=== PATIENT | female | born 1995 | race Caucasian/White ===

== ENCOUNTER 2020-12-17 11:48 | Outpatient (REF) | payer OTHER, MEDICAID, SELFPAY | END 2020-12-17 11:49 | disposition home or self-care (01) | LOC: HO.HMGCLDS 11:48 | PROVIDERS: PCP Nurse Practitioner Family; Visit Provider Nurse Practitioner Family | DX: Z13.89 Encounter for screening for other disorder (principal) ==

== ENCOUNTER 2020-12-18 08:02 | Outpatient (REF) | payer OTHER, SELFPAY ==
[2020-12-18 14:06] LABS: Alanine Aminotransferase 19 U/L (0-31); Albumin Level 3.9 g/dL (3.5-5.0); Alkaline Phosphatase 64 U/L (39-117); Anion Gap 14 (12-20); Aspartate Amino Transferase 18 U/L (5-31); Bilirubin Total 0.3 mg/dL (0.0-1.0); Blood Urea Nitrogen 9 mg/dL (9-16); Calcium 8.6 mg/dL (8.4-10.2); Carbon Dioxide 25 mmol/L (22-29); Chloride 106 mmol/L (96-108); Cholesterol 173 mg/dL; Estimated Glomerular Filt Rate > 60; Glucose Fasting 89 mg/dL (60-99); HDL Cholesterol 41 mg/dL; LDL Cholesterol Calculated 107 mg/dl; Potassium 4.4 mmol/L (3.3-5.1); Sodium 141 mmol/L (135-145); Total Protein 6.3 g/dL (6.5-8.0); Triglycerides 126 mg/dL
[2020-12-18 14:26] LABS: TSH reflex Free T4 1.03 uIU/mL (0.32-4.0); Vitamin D 25-OH Total 44.6 ng/mL (>30)
== END 2020-12-18 08:03 | disposition home or self-care (01) ==
LOC: HO.HMGCLDS 08:02
PROVIDERS: PCP Nurse Practitioner Family; Visit Provider Nurse Practitioner Family
DX: E55.9 Vitamin D deficiency, unspecified (principal); Z00.00 Encounter for general adult medical examination without abnormal findings
CPT/HCPCS: 36415; 80053; 80061; 82306; 84443

== ENCOUNTER 2023-09-01 13:22 | Outpatient (AMB) | payer OTHER, SELFPAY ==
--- NOTE | 2023-09-01 13:28 | A.OFFPC_ITS ---
Vital Signs 09/01/23 13:31 09/01/23 15:52 Height 5 ft 7 in Weight 226 lb BMI 35.4 BP 130/90 H 128/75 Blood Pressure Location Lt brachial Position Sitting Pulse 98 Pulse Source Pulse Oximeter Pulse Oximetry (%) 98 Oxygen Delivery Method Room Air Intake Visit Reasons: Annual Exam+ NEEDS PHQ9 Intake Note: Patient here for physical exam and would like to talk about the level of anxiety. And would also like to talk about Acid reflux issues. Allergies No Known Allergies Allergy (Verified 09/01/23 13:33) Medication List - Last Reconciled 09/01/23 by HERMINIO Hardy-RUBIA cholecalciferol (vitamin D3) (Vitamin D3) 50 mcg PO DAILY clonidine HCl 0.2 mg (2 x 0.1 mg) PO DAILY L norgest/e.estradiol-e.estrad 0.15 mg-30 mcg (84)/10 mcg (7) 1 tab PO DAILY Tobacco use date assessed: 09/01/23 Dental Screening Dental Screen Date: 09/01/23 Did you have a dental visit in the last 12 months?: Yes Did you have a dental problem in the last 6 months where you did not have access to dental care?: No Was dental information given to patient?: Patient has dentist HPI Annual Exam+ NEEDS PHQ9 HPI Details Pt is here for a PE. Will order labs. 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 Pt reports increased anxiety. She would like to try a medication for this. Will send escitalopram 5mg. Pt and her parents will keep me posted with how she is doing and any side effects. Denies any SI and HI. Pt does have an autistic disorder. She is accompanied by her mom today who helps with communication and questions. [facility] Medical History Autistic disorder Family History Father No problems noted. Mother No problems noted. Social History Housing: House Alcohol intake: never Patient Tobacco Use Status: Never used Tobacco e-Cigarette/Vaping Use: Never Used service: No Current occupational status: unemployed Cognitive needs: No Hearing needs: No Vision needs: Yes Questionnaire PHQ-9 Over the last 2 weeks, how often have you been bothered by any of the following problems? 1. Little interest or pleasure in doing things: not at all 2. Feeling down, depressed, or hopeless: not at all 3. Trouble falling or staying asleep, or sleeping too much: not at all 4. Feeling tired or having little energy: not at all 5. Poor appetite or overeating: not at all 6. Feeling bad about yourself - or that you are a failure or have let yourself or your family down: not at all 7. Trouble concentrating on things, such as reading the newspaper or watching television: not at all 8. Moving or speaking so slowly that other people could have noticed. Or the opposite - being so fidgety or restless that you have been moving around a lot more than usual: not at all 9. Thoughts that you would be better off or of hurting yourself in some way: not at all Total score: 0 Depression Screening Interpretation: Negative Depression Screening Done: Yes 23777 - PHQ-9 Billing: Yes Source: Developed by Drs. Casey Isaac, Hazel Gonzalez, Vance Mckeon and colleagues, with an educational fatmata from [employer]. Thrive Questionnaire Date Thrive assessed: 09/01/23 I am a: Patient What is your living situation today?: I have a steady place to live Within the past 12 months, did the food you bought not last and you didn't have the money to get more?: Never true Within the past 12 months, did you worry whether your food would run out before you got money to buy more?: Never true Do you have trouble paying for medicines?: No Do you have trouble getting transportation to medical appointments?: No Do you have trouble paying your heating and electricity bill?: No Do you have trouble taking care of your child, family member or friend?: No Do you have trouble with day-to-day activities such as bathing, preparing meals, shopping, managing finances, etc.?: No Are you currently unemployed and looking for a job?: No Are you interested in more education?: No AUDIT C Alcohol Use Questionnaire (AUDIT-C) 1. How often do you have a drink containing alcohol?: Never 3. How often do you have six or more drinks on one occasion?: Never Total Score: 0 Score Reviewed/Action Taken: No HECTOR-7 AMB Questionnaire HECTOR-7 Date HECTOR - 7 assessed: 09/01/23 Feeling nervous, anxious, or on edge: 2 = More than half the days Not being able to stop or control worryin = Several days Worrying too much about different things: 2 = More than half the days Trouble relaxin = Several days Being so restless that it is hard to sit still: 1 = Several days Becoming easily annoyed or irritable: 1 = Several days Feeling afraid as if something awful might happen: 1 = Several days Total HECTOR-7 score (0-4 normal; 5-9 mild; 10-14 moderate; 15-21 severe): 9 Source: Developed by Drs. Casey Isaac, Hazel Gonzalez, Vance Mckeon and colleagues, with an educational fatmata from [employer]. HECTOR-7 Assessment Billing HECTOR-7 Assessment Tool: HECTOR-7 Assessment 02281 Review of Systems Const Denies chills and Denies fever(s) Eyes Denies blurry vision ENT Denies vertigo, Denies dizziness and Denies sore throat Card Denies chest pain at rest, Denies chest pain with activity, Denies diaphoresis, Denies dyspnea and Denies dyspnea on exertion Resp Denies cough, Denies dyspnea, Denies dyspnea on exertion and Denies wheezing GI Denies abdominal pain, Denies melena, Denies hematochezia, Denies constipation, Denies diarrhea and Denies loose stools Denies hematuria Musc Denies numbness and Denies tingling Skin/Breast Denies lesions Neuro Denies vertigo, Denies dizziness, Denies numbness and Denies tingling Psych Denies anxiety, Denies depression, Denies homicidal ideation, Denies suicidal ideation and Denies other (substance abuse) Aller/Immun Denies wheezing Physical exam (Primary Care) Vital Signs: Last Vital Signs Pulse 98 09/01/23 13:31 BP 130/90 H 09/01/23 13:31 Pulse Ox 98 09/01/23 13:31 Oxygen Delivery Method Room Air 09/01/23 13:31 BMI result Body Mass Index 35.4 Tobacco/Smoking Status: Tobacco use Status Tobacco use date assessed 09/01/23 09/01/23 13:38 Patient Tobacco Use Status Never used Tobacco 09/01/23 13:38 e-Cigarette/Vaping Use Never Used 09/01/23 13:38 PHQ-9: PHQ-9 Score PHQ-9: Total score 0 09/01/23 14:28 Depression Screening Interpretation: Negative Thrive Assessment: Date of Thrive Assessment Date Thrive assessed 09/01/23 09/01/23 14:28 Const General: cooperative Nutritional Appearance: obese Orientation/consciousness: patient oriented x3 HENMT Head: Yes normal to inspection, Yes normocephalic and Yes atraumatic Ears: TM's normal bilaterally Eyes General: appearance normal, both eyes and all related structures Alignment and Position: alignment normal and position normal Neck Neck: Yes normal visual inspection and Yes no lymphadenopathy Thyroid: Thyroid normal Resp Effort & Inspection: normal respiratory effort Auscultation: clear to auscultation bilaterally Cardio Rate: regular rate Rhythm: regular rhythm Heart sounds: S1 normal heart sound present, S2 normal heart sound present and no murmurs GI Palpation (GI): Soft to palpation and nontender Auscultation: normal bowel sounds Skin Rashes: no rashes Neuro General: patient oriented x3, moves all extremities, no focal motor deficits and deep tendon reflexes 2+ bilaterally Romberg Test: Negative Psych Appearance: grossly normal Mental Status: mental status grossly normal Speech and movement: Normal speech and movement present Affect: normal affect Attitude: cooperative Thought process: Normal thought process present Thought content: Normal thought content present Insight: Good insight present (Psych) Judgement: Good judgement present (Psych) Assessment and Plan Assessment & Plan (1) Physical exam: Code(s): Z.00 - Encounter for general adult medical examination without abnormal findings Plan The patient agreed to the use of a medical economics consultant for this encounter. Scribed for DL Mendiola by Lizz Gutierrez medical economics consultant, on 09/01/2023 at 13:50 EST. Orders: Orders Comprehensive [place]. Panel Fast Today Z00.00 - Encounter for general adult medical examination without abnormal findings TSH reflex Free T4 Today Z00.00 - Encounter for general adult medical examination without abnormal findings Complete Blood Count Auto Diff Today Z00.00 - Encounter for general adult medical examination without abnormal findings UA CC w/rflx Micro + Cult Today Z00.00 - Encounter for general adult medical examination without abnormal findings Lipid Panel Today Z00.00 - Encounter for general adult medical examination without abnormal findings Medications: New omeprazole 20 mg PO DAILY 90 caps 0RF escitalopram oxalate 5 mg PO DAILY 90 tabs 0RF Coding Level of Care Code Est Pt Prev Care 18-39y(00129) Diagnoses Physical exam Z00.00 Additional Codes HECTOR-7 Assessment Billing - HECTOR-7 Assessment Tool: HECTOR-7 Assessment 81479 ([id number])
[2023-09-01 13:31] VITALS: BP 130/90; PULSE 98; O2SAT 98; BMI 35.4
[2023-09-01 15:52] VITALS: BP 128/75
== END 2023-09-01 14:10 | disposition home or self-care (01) ==
PROVIDERS: PCP Nurse Practitioner Family; Visit Provider Nurse Practitioner Family
DX: Z00.00 Encounter for general adult medical examination without abnormal findings (principal)
CPT/HCPCS: 99395

== ENCOUNTER 2024-09-14 10:18 | Outpatient (AMB) | payer OTHER, SELFPAY ==
--- NOTE | 2024-09-14 10:22 | MHC.PC.OV ---
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 Accompanied by: Self / Same As Patient Allergies No Known Allergies Allergy (Verified 09/14/24 11:18) Medication List - Last Reconciled 09/14/24 by DL Hardy cholecalciferol (vitamin D3) (Vitamin D3) 50 mcg PO DAILY clonidine HCl 0.2 mg (2 x 0.1 mg) PO DAILY escitalopram oxalate 10 mg PO DAILY L norgest/e.estradiol-e.estrad 0.15 mg-30 mcg (84)/10 mcg (7) 1 tab PO DAILY omeprazole 20 mg PO DAILY Tobacco use date assessed: 09/14/24 Dental Screening Dental Screen Date: 09/14/24 Did you have a dental visit in the last 12 months?: Yes Did you have a dental problem in the last 6 months where you did not have access to dental care?: No Was dental information given to patient?: Patient has dentist HPI HPI Comments History of Present Illness Details Pt is here for a PE. pt has seen a [facility] in the past, but refuses paps currently. Mother is the primary caregive (pt is autistic), is working with her daughter (pt) to get this performed at some point. [facility] Medical History Autistic disorder Surgical History No pertinent past surgical history Family History Father No problems noted. Mother No problems noted. Social History Housing: House Alcohol intake: never Patient Tobacco Use Status: Never used Tobacco e-Cigarette/Vaping Use: Never Used service: No Current occupational status: unemployed Cognitive needs: No Hearing needs: No Vision needs: Yes Questionnaire PHQ-9 Over the last 2 weeks, how often have you been bothered by any of the following problems? 1. Little interest or pleasure in doing things: not at all 2. Feeling down, depressed, or hopeless: not at all 3. Trouble falling or staying asleep, or sleeping too much: not at all 4. Feeling tired or having little energy: not at all 5. Poor appetite or overeating: not at all 6. Feeling bad about yourself - or that you are a failure or have let yourself or your family down: not at all 7. Trouble concentrating on things, such as reading the newspaper or watching television: not at all 8. Moving or speaking so slowly that other people could have noticed. Or the opposite - being so fidgety or restless that you have been moving around a lot more than usual: not at all 9. Thoughts that you would be better off or of hurting yourself in some way: not at all Total score: 0 Depression Screening Interpretation: Negative Depression Screening Done: Yes 04228 - PHQ-9 Billing: Yes Source: Developed by Drs. Casey Isaac, Hazel Gonzalez, Vance Mckeon and colleagues, with an educational fatmata from [employer]. Thrive Questionnaire Date Thrive assessed: 09/14/24 I am a: Patient What is your living situation today?: I have a steady place to live Within the past 12 months, did the food you bought not last and you didn't have the money to get more?: Never true Within the past 12 months, did you worry whether your food would run out before you got money to buy more?: Never true Do you have trouble paying for medicines?: No Do you have trouble getting transportation to medical appointments?: No Do you have trouble paying your heating and electricity bill?: No Do you have trouble taking care of your child, family member or friend?: No Do you have trouble with day-to-day activities such as bathing, preparing meals, shopping, managing finances, etc.?: No Are you currently unemployed and looking for a job?: Yes Are you interested in more education?: No Please select the resources that you would like help with: None Currently or been in a relationship where the following occur: I choose not to answer THRIVE Score: 0 AUDIT C Alcohol Use Questionnaire (AUDIT-C) 1. How often do you have a drink containing alcohol?: Never 2. How many drinks containing alcohol do you have on a typical day when you are drinking?: 1 or 2 3. How often do you have six or more drinks on one occasion?: Never Total Score: 0 Score Reviewed/Action Taken: Yes HECTOR-7 AMB Questionnaire HECTOR-7 Date HECTOR - 7 assessed: 09/14/24 Feeling nervous, anxious, or on edge: 0 = Not at all Not being able to stop or control worryin = Not at all Worrying too much about different things: 0 = Not at all Trouble relaxin = Not at all Being so restless that it is hard to sit still: 0 = Not at all Becoming easily annoyed or irritable: 0 = Not at all Feeling afraid as if something awful might happen: 0 = Not at all Total HECTOR-7 score (0-4 normal; 5-9 mild; 10-14 moderate; 15-21 severe): 0 Source: Developed by Drs. Casey Isaac, Hazel Gonzalez, Vance Mckeon and colleagues, with an educational fatmata from [employer]. HECTOR-7 Assessment Billing HECTOR-7 Assessment Tool: HECTOR-7 Assessment 24224 Review of Systems Const Denies chills and Denies fever(s) Eyes Denies blurry vision ENT Denies vertigo, Denies dizziness and Denies sore throat Card Denies chest pain at rest, Denies chest pain with activity, Denies diaphoresis, Denies dyspnea and Denies dyspnea on exertion Resp Denies cough, Denies dyspnea, Denies dyspnea on exertion and Denies wheezing GI Denies abdominal pain, Denies melena, Denies hematochezia, Denies constipation, Denies diarrhea and Denies loose stools Denies hematuria Musc Denies numbness and Denies tingling Skin/Breast Denies lesions Neuro Denies vertigo, Denies dizziness, Denies numbness and Denies tingling Psych Denies anxiety, Denies depression, Denies homicidal ideation, Denies suicidal ideation and Denies other (substance abuse) Aller/Immun Denies wheezing Physical exam (Primary Care) Vital Signs: Last Vital Signs Pulse 82 09/14/24 10:23 BP 122/80 09/14/24 10:23 Pulse Ox 98 01/08/25 10:23 BMI result Body Mass Index 35.5 Tobacco/Smoking Status: Tobacco use Status Tobacco use date assessed 09/14/24 09/14/24 10:24 Patient Tobacco Use Status Never used Tobacco 09/14/24 10:24 e-Cigarette/Vaping Use Never Used 09/14/24 10:24 PHQ-9: PHQ-9 Score PHQ-9: Total score 0 09/14/24 10:51 Depression Screening Interpretation: Negative Thrive Assessment: Date of Thrive Assessment Date Thrive assessed 09/14/24 09/14/24 10:24 Currently or been in a relationship where the following occur: I choose not to answer Const General: cooperative Nutritional Appearance: well nourished and obese Orientation/consciousness: patient oriented x3 HENMT Head: Yes normal to inspection, Yes normocephalic and Yes atraumatic Ears: TM normal on the right and TM normal on the left Eyes General: appearance normal, both eyes and all related structures Alignment and Position: alignment normal and position normal Neck Neck: Yes normal visual inspection, Yes no lymphadenopathy and Yes supple Resp Effort & Inspection: normal respiratory effort Auscultation: clear to auscultation bilaterally Cardio Rate: regular rate Rhythm: regular rhythm Heart sounds: S1 normal heart sound present, S2 normal heart sound present and no murmurs GI Palpation (GI): Soft to palpation and nontender Auscultation: normal bowel sounds Skin Rashes: no rashes Neuro General: patient oriented x3, moves all extremities, no focal motor deficits and deep tendon reflexes 2+ bilaterally Romberg Test: Negative Extrem Right lower extremity: no edema Left lower extremity: no edema Psych Affect: normal affect Attitude: cooperative Thought process: Normal thought process present Coding Level of Care Code Est Pt Prev Care 18-39y(33765) Diagnoses Physical exam Z00.00 Vitamin D deficiency E55.9 Additional Codes HECTOR-7 Assessment Billing - HECTOR-7 Assessment Tool: HECTOR-7 Assessment 44173 ([id number]) PHQ-9 - 03712 - PHQ-9 Billing: Yes ([id number]) Assessment & Plan Assessment & Plan (1) Physical exam: Code(s): Z00.00 - Encounter for general adult medical examination without abnormal findings Category: Medical (2) Vitamin D deficiency: Code(s): E55.9 - Vitamin D deficiency, unspecified Category: Medical Plan labs encouraged to have drawn in the near future Orders: Orders Complete Blood Count Auto Diff Today Z00.00 - Encounter for general adult medical examination without abnormal findings Vitamin D 25-OH Total Today E55.9 - Vitamin D deficiency, unspecified Comprehensive [place]. Panel Fast Today Z00.00 - Encounter for general adult medical examination without abnormal findings TSH reflex Free T4 Today Z00.00 - Encounter for general adult medical examination without abnormal findings UA CC w/rflx Micro + Cult Today Z00.00 - Encounter for general adult medical examination without abnormal findings Lipid Panel Today Z00.00 - Encounter for general adult medical examination without abnormal findings Medications: Refilled clonidine HCl 0.2 mg (2 x 0.1 mg) PO DAILY 180 tabs 1RF escitalopram oxalate 10 mg PO DAILY 90 tabs 0RF omeprazole 20 mg PO DAILY 90 caps 1RF cholecalciferol (vitamin D3) (Vitamin D3) 50 mcg PO DAILY 90 tabs 1RF E55.9 - Vitamin D deficiency, unspecified L norgest/e.estradiol-e.estrad 0.15 mg-30 mcg (84)/10 mcg (7) 1 tab PO DAILY 91 tabs 2RF
[2024-09-14 10:23] VITALS: BP 122/80; PULSE 82; O2SAT 98; BMI 35.5
== END 2024-09-14 11:41 | disposition home or self-care (01) ==
PROVIDERS: PCP Nurse Practitioner Family; Visit Provider Nurse Practitioner Family
DX: Z00.00 Encounter for general adult medical examination without abnormal findings (principal); E55.9 Vitamin D deficiency, unspecified

== ENCOUNTER → 2024-09-14 10:18 | Outpatient (BNVA) | payer OTHER, SELFPAY | PROVIDERS: PCP Nurse Practitioner Family; Visit Provider Nurse Practitioner Family | DX: Z00.00 Encounter for general adult medical examination without abnormal findings (principal); E55.9 Vitamin D deficiency, unspecified | CPT/HCPCS: 96127; 99395 ==

== ENCOUNTER 2025-03-16 10:13 | Outpatient (AMB) | payer OTHER, SELFPAY ==
[2025-03-16 10:15] VITALS: BP 124/84; PULSE 118; TEMP 37; O2SAT 98; BMI 34.5
--- NOTE | 2025-03-16 10:15 | AM.OFFWIN_ITS ---
Intake Vital Signs 03/16/25 10:15 Height 5 ft 7 in Weight 220 lb BMI 34.5 BP 124/84 Blood Pressure Location Lt brachial Position Sitting Pulse 118 H Pulse Source Pulse Oximeter Temp 98.6 F Temp Source Oral Pulse Oximetry (%) 98 Oxygen Delivery Method Room Air Intake Visit Reasons: EP shaky, nausea, headache, dizzy, weak Intake Note: presents with nausea, stomach pain, vomiting, headaches, dizziness, weakness, shaky, frequent urination for about a week Patient Tobacco Use Status: Never used Tobacco Allergies No Known Allergies Allergy (Verified 03/16/25 10:19) Do you need a note to return to daycare/school/sports/work: No HPI HPI Comments History of Present Illness Details Patient is a 29yo F with hx of autism who presents with her mom and uncle She started with symptoms last week Per mother, last week she was experiencing headaches and intermittent dizziness [place] like due to heat and not drinking as much Also noted at that time she had mosquito bites on legs and itched them Wanted to be checked today because still not feeling well Per patient she has not had any episodes of syncope or headache trauma 5/10 headache all over and is unable t o specify when it comes about or how it feels Has taken Ibuprofen with minimal relief No body aches but + fatigue + nausea, and did vomit clear phlegm/francis e; occurs once or twice a day since last week No diarrhea. States normal bowel movements + urinary frequency but denies dysuria o r other urinary symptoms Intermittent stomach upset but its not pain. She said sitting up makes it worse and laying down makes it better No cough or SOB No congestion ST or ear pain PFSH Medical History Autistic disorder Surgical History No pertinent past surgical history Family History Father No problems noted. Mother No problems noted. Social History Housing: House Alcohol intake: never Patient Tobacco Use Status: Never used Tobacco e-Cigarette/Vaping Use: Never Used service: No Current occupational status: unemployed Cognitive needs: No Hearing needs: No Vision needs: Yes Review of Systems Const Denies chills, Reports fatigue, Denies fever(s), Denies frequent falls, Reports headache(s), Denies increased appetite, Reports lethargy and Reports poor appetite Eyes Denies blurry vision ENT Reports dizziness, Reports headache(s), Denies nasal discharge and Denies sore throat Card Denies chest pain Resp Denies cough GI Reports abdominal pain (she denies pain but + ache/upset), Denies diarrhea, Denies loose stools, Reports nausea and Reports vomiting Denies hematuria, Denies difficulty voiding, Denies dysuria, Denies urinary incontinence, Denies urinary urgency and Reports other (urinary frequency) Musc Denies myalgias Skin/Breast Reports other (had bug bites to leg without significant redness/swelling) Neuro Denies confusion, Reports dizziness, Denies frequent falls and Reports headache(s) Psych Denies confusion Endo Reports fatigue Physical Exam Vital Signs: Last Vital Signs Temp 98.6 F 03/16/25 10:15 Pulse 118 H 03/16/25 10:15 BP 124/84 03/16/25 10:15 Pulse Ox 98 03/16/25 10:15 Oxygen Delivery Method Room Air 03/16/25 10:15 BMI result Body Mass Index 34.5 General: Non-toxic, NAD. Speaking full sentences but intermittently becomes upset when discussing abdominal pain Skin: Warm dry throughout Eye: EOMI, PERRL HENT: Airway patent. Uvula midline. No pharyngeal erythema or edema. No SERVICES ENGINEER. Bilateral canals clear. TM non-erythematous, non-bulging. No TM perforation or hemotympanum noted. Respiratory: CTA bilaterally. No wheezes, rales or rhonchi Cardiac: slightly tachycardic. No murmur MSK: Full ROM extremities. Neurology: Alert. No aphasia or facial droop. Gait without abnormality Psych: Slight anxious affect with normal mood Const General: No confusion Orientation/consciousness: No confusion Neuro General: No confusion Results AMB Test Urine AMB Test Urine Negative Last Edit by Tameka Pichardo MA on 03/16 11:06 Assessment & Plan Assessment & Plan (1) Urinary frequency: Code(s): R35.0 - Frequency of micturition Plan: Patient seen and evaluated. Will obtain urinalysis and HCG Pt attempted to get a clean catch with a hat in toilet but she did not wipe HCG negative Dirty urinalysis shows: + blood, protein,ketones, leuks and glucose Due to 3+ glucose with ketones, POC glucose checked in office and showed: HIGH, unable to read Will send to ER for workup Call placed to [facility] and expect given Discussed findings with patient and family; mother number is [phone] Patient and family gave verbal understanding and had no additional questions or concerns at time of discharge All questions answered (2) Abdominal discomfort: Code(s): R10.9 - Unspecified abdominal pain Plan: Pt seen and evaluated Non-toxic appearing and does not have an acute abdomen on exam without rebound or guarding She is slightly tachycardic on exam but is anxious see above for plan/management Family and pt gave verbal understanding and had no additional quesrtions at this time (3) Hyperglycemia: Code(s): R73.9 - Hyperglycemia, unspecified Plan: New onset hyperglycemia with reading high with ketones and glucose in office Refused ambulance but going immediarely to [facility] Sent to [facility] for new onset diabetes workup and further management Orders: Orders Urine Culture Today R35.0 - Frequency of micturition AMB Urinalysis Automated Today Z13.9 - Encounter for screening, unspecified AMB HCG Urine Test Today Z13.9 - Encounter for screening, unspecified Coding Level of Care Code Est Pt Level 5 (15983) Diagnoses Urinary frequency R35.0 Abdominal discomfort R10.9 Hyperglycemia R73.9
== END 2025-03-16 11:12 | disposition home or self-care (01) ==
PROVIDERS: PCP Nurse Practitioner Family; Visit Provider Physician Assistant
DX: R35.0 Frequency of micturition (principal); R10.9 Unspecified abdominal pain; R73.9 Hyperglycemia, unspecified; Z32.02 Encounter for pregnancy test, result negative

== ENCOUNTER → 2025-03-16 10:13 | Outpatient (BNVA) | payer OTHER, SELFPAY | PROVIDERS: PCP Nurse Practitioner Family; Visit Provider Physician Assistant | DX: R35.0 Frequency of micturition (principal); R10.9 Unspecified abdominal pain; R73.9 Hyperglycemia, unspecified | CPT/HCPCS: 81003; 81025; 99212 ==

== ENCOUNTER 2025-03-16 11:36 | Emergency (ER) | payer OTHER, SELFPAY ==
[2025-03-16 11:43] VITALS: BP 141/90; PULSE 105; RESP 16; TEMP 36.4; O2SAT 97; BMI 32.7
--- NOTE | 2025-03-16 11:47 | ED_ITS ---
HPI - General Adult General Chief complaint: Recheck/Abnormal Lab/Rx Stated complaint: high bs sent from urgent care Time Seen by Provider: 03/16/25 11:54 Source: patient and family Mode of arrival: ambulatory Limitations: no limitations History of Present Illness ED Provider: HPI narrative: 29-year-old woman sent to ER from PCP's office for reports of polyuria, polydipsia, and new onset of hyperglycemia and ketonuria, does have history of autism however she is very functional able to make her needs known, here with mom and dad, no reports of fevers or chills no reports of dyspnea, abdominal pain, she tested negative for at PCP's office. I reviewed her PCP visit Related Data Previous Rx's ?Medication ?Instructions ?Recorded L norgest/E estradiol-E estrad 1 tab PO DAILY #91 tabs 09/14/24 0.15 mg-30 mcg (84)/10 mcg(7) tabs,3mos cholecalciferol (vitamin D3) 50 50 mcg PO DAILY #90 ta bs 09/14/24 mcg (2,000 unit) tablet (Vitamin D3) clonidine HCl 0.1 mg tablet 0.2 mg (2 x 0.1 mg) PO TONE LY #180 09/14/24 tabs omeprazole 20 mg capsule,delayed 20 mg PO DAILY #90 ca ps 09/14/24 release escitalopram oxalate 10 mg tablet 10 mg PO DAILY #90 t abs 12/11/24 metformin 500 mg tablet 500 mg PO BID 30 days #60 ta bs 03/16/25 Allergies Allergy/AdvReac Type Severity Reaction Status Date / Time No Known Allergies Allergy Verified 03/16/25 11:43 Review of Systems 2 Constitutional: Constitutional: Reports as per [facility] Past Medical History Medical History Autistic disorder Surgical History No pertinent past surgical history Family History Family History Father No problems noted. Mother No problems noted. Social History Social History Housing: House Alcohol intake: never Patient Tobacco Use Status: Never used Tobacco e-Cigarette/Vaping Use: Never Used Use of substances other than those prescribed or required for medical reasons: No Advance Directives: No Advance Directives Information Provided: Yes service: No Current occupational status: unemployed Cognitive needs: No Hearing needs: No Vision needs: Yes Physical Exam ED Vital Signs: Vital Signs - 24 hr 03/16/25 11:43 03/16/25 13:21 Temperature 97.6 F 97.6 F Pulse Rate 105 H 105 H Respiratory Rate 16 16 Blood Pressure 141/90 H 141/90 H Pulse Oximetry 97 97 Oxygen Delivery Method Room Air Room Air BMI result Body Mass Index 32.7 Const Other: * Gen: ?Overall well-appearing patient * HEENT: Dry oral mucosa * Neck: Supple, no LAD * CV: RRR, no obvious murmurs appreciated * Resp: ?No wheezing rales rhonchi no stridor moving air well * Abd: ?Bowel sounds are present, no tenderness no rebound no rigidity * MSK: FROM, strength 5/5 all extremities * Skin: 2-3 mosquito like bite grossman to the left lower extremity over the anterior [place] no evidence for infection * Neuro: ?Alert and oriented x3, moving upper and lower extremities symmetrically, no obvious facial asymmetry noted Course Course Course Narrative: This is an RME: Additional HPI, ROS, PE not included below will be deferred to primary provider. RME assessment and note performed by: Connie Beltran PA-C This is a 89-vdbg-pcw-female, with a history of autism spectrum disorder, who presents to the ER accompanied by her parents, with complaints of nausea, vomiting, headache, polyuria, polydipsia. Symptoms started 1 week ago. Was seen at primary care this morning and point of care glucometer read as high. They are unsure what the POC high reading is. She denies any abdominal pain. States that she is feeling nauseous. No known history of diabetes however mother states that it runs in the family. Plan: Labs, UA, Further ER eval needed Medications Administered Discontinued Medications Generic Name Dose Route Start Last Admin Trade Name Freq PRN Reason Stop Dose Admin Sodium Chloride 1,000 mls @ 999 mls/hr 03/16/25 12:30 03/16/25 13:19 Ns IV 03/16/25 13:30 999 mls/hr .[id number] NATHANIEL Administration Insulin Human Lispro 12 unit 03/16/25 12:16 03/16/25 13:27 Insulin Lispro 100 Unit/Ml 3 Ml Vial SUBCUT 03/16/25 12:17 12 unit ONCE ONE Administration Medical Decision Making Medical Decision Making [facility] Narrative: See my differential as below, very pleasant 29-year-old woman here with the parents presenting from PCP's office with concern of new onset of diabetes and she was sent to the ER to make sure she is not ketotic state, reassuringly her blood work does not show any elevated gap, she does have hyperglycemia and ketonuria as well as glucosuria, her presentation is consistent with type 2 diabetes, also spoke to her it seems that her diet and glycemic can take is not well managed sounds like she drinks a lot of juices and sodas, we will give IV fluids, subcutaneous regular insulin, and I will start her on metformin, she will need to follow up with the PCP and they will need to continue Augmentin her medications and possibly refer her to enrichment specialist but I do not feel that this is indicated at this time where she just continue with oral medications and then she may need a longer acting injection this would be done by PCP then monitored frequently on outpatient setting and then if her glucose is not well controlled then I think it is reasonable to refer her to an enrichment specialist. Differential Diagnosis Differential Diagnoses: The differential diagnosis associated with the presentation includes DKA, hyperglycemia, HHS, electrolyte derangements, dehydration Admission/Observation Consideration of admission/observation: Escalation of care including admission/observation considered Lab Data [facility] Lab Attestation statement: I reviewed the patient's lab results. 03/16/25 12:13 03/16/25 12:13 Labs: Lab Results 03/16/25 03/16/25 03/16/25 Range/Units 11:53 12:13 12:20 WBC 9.3 (4.8-10.8) X10*3/uL RBC 4.72 (4.20-5.50) X10*6/uL Hgb 13.1 (12.0-16.0) g/dl Hct 38.7 (37.0-47.0) % MCV 82.0 (80.0-98.0) fL MCH 27.8 (27.0-33.0) pg MCHC 33.9 (31.0-35.0) g/dl RDW 13.2 (11.0-16.0) % Plt Count 311 (160-400) X10*3/uL MPV 12.3 (9.4-12.3) fL Immature Gran % (Auto) 0.3 (0.0-0.4) % Neut % (Auto) 78.2 H (45-73) % Lymph % (Auto) 17.3 L (20-40) % [place] % (Auto) 3.7 (2-11) % Eos % (Auto) 0.0 (0-4) % Baso % (Auto) 0.5 (0-2) % Lymph # (Auto) 1.6 (1.2-4.9) X10*3/uL [place] # (Auto) 0.4 (0.1-1.2) X10*3/uL Eos # (Auto) 0.0 (0.0-0.4) X10*3/uL Baso # (Auto) 0.1 (0.0-0.2) X10*3/uL Abs Immat Gran (auto) 0.03 (0.00-0.03) X10*3/uL Absolute Neuts (auto) 7.3 (2.0-8.3) x10*3/uL Absolute Nucleated RBC 0.000 (0.0-0.012) X10*3/uL Nucleated RBC % (auto) 0.0 (0.0-0.2) /100WBC VBG pH 7.35 (7.32-7.43) VBG pCO2 30 mmHg VBG pO2 78 mmHg VBG HCO3 17 L (22-26) mmol/L VBG O2 Saturation 95.0 % VBG Base Excess -6.8 mmol/L Sodium 135 (135-145) mmol/L Potassium 4.0 (3.3-5.1) mmol/L Chloride 99 (96-108) mmol/L Carbon Dioxide 18 L (22-29) mmol/L Anion Gap 22 H (12-20) BUN 7 L (9-16) mg/dL Creatinine 0.84 (0.5-1.4) mg/dL Estim Creat Clear Calc 117.7 Estimated GFR > 60 POC Glucose 558 H* (60-115) mg/dL Random Glucose 574 H* (60-115) mg/dL Calcium 9.0 (8.4-10.2) mg/dL Magnesium 2.1 (1.6-2.6) mg/dL Total Bilirubin 0.3 (0.0-1.0) mg/dL Direct Bilirubin 0.2 (0.0-0.5) mg/dL AST 62 H (5-31) U/L ALT 22 (0-31) U/L Alkaline Phosphatase 105 (39-117) U/L Total Protein 7.3 (6.5-8.0) g/dL Albumin 4.4 (3.5-5.0) g/dL Lipase 20 (8-78) U/L Beta-Hydroxybutyrate 4.83 H (0.02-0.27) mmol/L Beta HCG, Quant < 2 mIU/mL Influenza Type A (PCR) NEGATIVE (Negative) Influenza Type B (PCR) NEGATIVE (Negative) RSV RNA Qual (PCR) NEGATIVE (Negative) SARS-CoV-2 RNA (RT-PCR) NEGATIVE (Negative) 03/16/25 Range/Units 12:52 WBC (4.8-10.8) X10*3/uL RBC (4.20-5.50) X10*6/uL Hgb (12.0-16.0) g/dl Hct (37.0-47.0) % MCV (80.0-98.0) fL MCH (27.0-33.0) pg MCHC (31.0-35.0) g/dl RDW (11.0-16.0) % Plt Count (160-400) X10*3/uL MPV (9.4-12.3) fL Immature Gran % (Auto) (0.0-0.4) % Neut % (Auto) (45-73) % Lymph % (Auto) (20-40) % [place] % (Auto) (2-11) % Eos % (Auto) (0-4) % Baso % (Auto) (0-2) % Lymph # (Auto) (1.2-4.9) X10*3/uL [place] # (Auto) (0.1-1.2) X10*3/uL Eos # (Auto) (0.0-0.4) X10*3/uL Baso # (Auto) (0.0-0.2) X10*3/uL Abs Immat Gran (auto) (0.00-0.03) X10*3/uL Absolute Neuts (auto) (2.0-8.3) x10*3/uL Absolute Nucleated RBC (0.0-0.012) X10*3/uL Nucleated RBC % (auto) (0.0-0.2) /100WBC VBG pH (7.32-7.43) VBG pCO2 mmHg VBG pO2 mmHg VBG HCO3 (22-26) mmol/L VBG O2 Saturation % VBG Base Excess mmol/L Sodium (135-145) mmol/L Potassium (3.3-5.1) mmol/L Chloride (96-108) mmol/L Carbon Dioxide (22-29) mmol/L Anion Gap (12-20) BUN (9-16) mg/dL Creatinine (0.5-1.4) mg/dL Estim Creat Clear Calc Estimated GFR POC Glucose 443 H* (60-115) mg/dL Random Glucose (60-115) mg/dL Calcium (8.4-10.2) mg/dL Magnesium (1.6-2.6) mg/dL Total Bilirubin (0.0-1.0) mg/dL Direct Bilirubin (0.0-0.5) mg/dL AST (5-31) U/L ALT (0-31) U/L Alkaline Phosphatase (39-117) U/L Total Protein (6.5-8.0) g/dL Albumin (3.5-5.0) g/dL Lipase (8-78) U/L Beta-Hydroxybutyrate (0.02-0.27) mmol/L Beta HCG, Quant mIU/mL Influenza Type A (PCR) (Negative) Influenza Type B (PCR) (Negative) RSV RNA Qual (PCR) (Negative) SARS-CoV-2 RNA (RT-PCR) (Negative) External Record Review External record reviewed: Outpatient record Discharge Plan Discharge Clinical Impression: New onset type 2 diabetes mellitus Patient Disposition: Home, Self-Care Instructions: Diabetes and Nutrition (ED), Type 2 Diabetes Management for Adults (ED) Additional Instructions: You do have what appears to be a new onset of diabetes, likely type 2, I recommend dietary changes including hydrating with water and not sugary drinks as they have high glycemic index and we will raise your sugars, weight loss, starting on metformin 500 mg twice a day, follow up with the PCP, I would like the PCP to see you in a week or 2 for re-evaluation, and medication adjustments, would not worry about high glucose at this time right now concentrate on taking metformin daily as prescribed, making sure that your eating better, I recommend less carbohydrates such as pastas, breads, sugary drinks, candy, or any type of junk food, stick to protein such as meats, legumes, salad and greens, stay well hydrated. Your blood work did not reveal any evidence for diabetic ketoacidosis or dehydration which is reassuring. Prescriptions: New metformin 500 mg tablet 500 mg PO BID 30 Days Qty: 60 0RF No Action escitalopram oxalate 10 mg tablet 10 mg PO DAILY Qty: 90 0RF cholecalciferol (vitamin D3) [Vitamin D3] 50 mcg (2,000 unit) tablet 50 mcg PO DAILY Qty: 90 1RF clonidine HCl 0.1 mg tablet 0.2 mg PO DAILY Qty: 180 1RF L norgest/e.estradiol-e.estrad 0.15 mg-30 mcg (84)/10 mcg (7) tablets,dose pack,3 month 1 tab PO DAILY Qty: 91 2RF omeprazole 20 mg capsule,delayed release(DR/EC) 20 mg PO DAILY Qty: 90 1RF Referrals: Earl Clay, [facility] [Primary Care Provider, Internal Medicine] - 1 week Referral Note: Please re-evaluate after ER visit, I am starting patient on metformin, may need to increase her metformin level and add on Lantus if she is not better in a week or two, see my notes Clinical Impression: New onset type 2 diabetes mellitus Print Language: Maltese
[2025-03-16 11:56] LABS: Glucose, Whole Blood 558 mg/dL (60-115)
[2025-03-16 12:18] LABS: MANUAL DIFF FLAG NO
[2025-03-16 12:20] LABS: Hematocrit 38.7 % (37.0-47.0); Hemoglobin 13.1 g/dl (12.0-16.0); Imm Gran Abs Auto 0.03 X10*3/uL (0.00-0.03); Imm Gran Pct Auto 0.3 % (0.0-0.4); Lymphocytes Absolute Auto 1.6 X10*3/uL (1.2-4.9); Mean Corpuscular HGB Conc 33.9 g/dl (31.0-35.0); Mean Corpuscular Hemoglobin 27.8 pg (27.0-33.0); Mean Corpuscular Volume 82.0 fL (80.0-98.0); NRBC Abs Auto 0.000 X10*3/uL (0.0-0.012); NRBC Pct Auto 0.0 /100WBC (0.0-0.2); Platelet Count 311 X10*3/uL (160-400); Red Blood Count 4.72 X10*6/uL (4.20-5.50); White Blood Count 9.3 X10*3/uL (4.8-10.8)
[2025-03-16 12:22] LABS: Venous Blood Gas Refer to POC result
[2025-03-16 12:23] LABS: VBG HCO3 17 mmol/L (22-26); VBG O2 % Saturation 95.0 %
[2025-03-16 12:45] LABS: Alanine Aminotransferase 22 U/L (0-31); Albumin Level 4.4 g/dL (3.5-5.0); Alkaline Phosphatase 105 U/L (39-117); Anion Gap 22 (12-20); Aspartate Amino Transferase 62 U/L (5-31); Blood Urea Nitrogen 7 mg/dL (9-16); Calcium 9.0 mg/dL (8.4-10.2); Carbon Dioxide 18 mmol/L (22-29); Chloride 99 mmol/L (96-108); Creatinine Clr Calc Pharmacy 117.7; Estimated Glomerular Filt Rate > 60; Lipase 20 U/L (8-78); Magnesium 2.1 mg/dL (1.6-2.6); Potassium 4.0 mmol/L (3.3-5.1); Sodium 135 mmol/L (135-145); Total Protein 7.3 g/dL (6.5-8.0)
[2025-03-16 12:56] LABS: Glucose, Whole Blood 443 mg/dL (60-115)
[2025-03-16 12:58] LABS: Resp Syncy Virus RNA Qual PCR NEGATIVE (Negative); SARS COV2 PCR INHOUSE NEGATIVE (Negative)
[2025-03-16 13:21] VITALS: BP 141/90; PULSE 105; RESP 16; TEMP 36.4; O2SAT 97
--- NOTE | 2025-03-16 13:23 | PC.NURSE ---
Pt roomed and changed and placed on 1/2 monitor- VSS Pt calm and in NAD. Mom at bedside.
[2025-03-16 14:06] LABS: Glucose, Whole Blood 377 mg/dL (60-115)
[2025-03-16 14:19] VITALS: BP 126/71; PULSE 96; RESP 18; TEMP 36.8; O2SAT 98
[2025-03-16 14:55] VITALS: BP 126/71; PULSE 96; RESP 18; TEMP 36.8; O2SAT 98
== END 2025-03-16 14:56 | disposition home or self-care (01) ==
PROVIDERS: Physician Assistant Medical; Emergency Provider Emergency Medicine; PCP Nurse Practitioner Family
DX: E11.65 Type 2 diabetes mellitus with hyperglycemia (principal); R35.89 Other polyuria; R63.1 Polydipsia; R82.4 Acetonuria; F84.0 Autistic disorder
CPT/HCPCS: 36415; 80048; 80076; 82010; 82803; 82947; 83690; 83735; 84702; 85025; 87637; 96360; 99284

== ENCOUNTER 2025-03-18 17:40 | Inpatient (IN) | payer OTHER, SELFPAY ==
--- NOTE | ~2025-03-18 | XR_ITS ---
EXAMINATION: XR CHEST CLINICAL INFORMATION: weakness COMPARISON: None available. TECHNIQUE: 2 views of the chest were obtained. FINDINGS: The cardiac, hilar, and mediastinal contours are normal. There are low lung volumes. The lungs are clear bilaterally. There is no pneumothorax or pleural effusion. There is no focal osseous or soft tissue abnormality. XR/XR chest 2V IMPRESSION: No active pulmonary disease. Electronically signed by: Roberto Navarro MD 03/20/2025 12:03 PM EDT
[2025-03-18 17:52] VITALS: BP 162/90; PULSE 120; RESP 20; TEMP 37; O2SAT 100; BMI 32.8
--- NOTE | 2025-03-18 18:09 | ED_ITS ---
HPI - General Adult General Chief complaint: General Medical Stated complaint: can't keep food down/sugar 325 Time Seen by Provider: 03/18/25 18:28 Source: patient, family, RN notes reviewed and old records reviewed Mode of arrival: ambulatory Limitations: no limitations History of Present Illness ED Provider: Rachael MELENDEZ narrative: 30-year-old female with a past medical history significant for autism spectrum disorder, recent diagnosis of diabetes presents for evaluation of not feeling well. She initially presented to this hospital 2 days ago and was diagnosed with diabetes. Her sugar of the time was 558 She was treated with insulin, IV fluids and discharged home with metformin. She continues to have nausea vomiting and some diarrhea. She denies any abdominal pain. Denies any fevers, chills pain She feels as though she is unable to keep down her metformin and thinks she is getting worse. The patient's glucose at home today was over 300 Related Data Home Medications ?Medication ?Instructions ?Recorded ?Confirmed L norgest/E estradiol-E estrad 1 tab PO DAILY 03/19/25 03/19/25 0.15 mg-30 mcg (84)/10 mcg(7) tabs,3mos ([place]) clonidine HCl 0.1 mg tablet 0.2 mg PO BEDTIME 03/19/25 03/19/25 melatonin 10 mg tablet 10 mg PO BEDTIME 03/19/25 Previous Rx's ?Medication ?Instructions ?Recorded cholecalciferol (vitamin D3) 50 50 mcg PO DAILY #90 ta bs 09/14/24 mcg (2,000 unit) tablet (Vitamin D3) omeprazole 20 mg capsule,delayed 20 mg PO DAILY #90 ca ps 09/14/24 release escitalopram oxalate 10 mg tablet 10 mg PO DAILY #90 t abs 12/11/24 metformin 500 mg tablet 500 mg PO BID 30 days #60 ta bs 03/16/25 Allergies Allergy/AdvReac Type Severity Reaction Status Date / Time No Known Allergies Allergy Verified 03/18/25 17:55 Review of Systems 2 Constitutional: Constitutional: Denies body ache(s), Denies chills, Reports fatigue, Denies fever(s), Reports malaise and Reports weakness Eyes: Eyes: Denies blurry vision ENT: Denies dizziness and Reports dry mouth Cardiovascular: Cardiovascular: Denies chest pain and Denies dyspnea on exertion Respiratory: Respiratory: Denies cough and Denies dyspnea on exertion Gastrointestinal: Gastrointestinal: Denies abdominal pain, Denies melena, Denies hematochezia, Reports diarrhea, Reports loose stools, Reports nausea, Reports vomiting and Denies hematemesis Musculoskeletal: Musculoskeletal: Denies back pain Integumentary/Breasts: Skin/Breast: Denies rash Neurologic: Denies dizziness and Reports weakness Psychiatric: Psychiatric: Denies anxiety Endocrine: Endocrine: Reports fatigue PMFSH Past Medical History Medical History Autistic disorder Surgical History No pertinent past surgical history Family History Family History Father No problems noted. Mother No problems noted. Social History Social History Household Members: Family Housing: House Do you presently have visiting nurse or other home services: No Alcohol intake: never Patient Tobacco Use Status: Never used Tobacco Smoked in Last 30 Days: No e-Cigarette/Vaping Use: Never Used Use of substances other than those prescribed or required for medical reasons: No Currently Displaying Signs/Symptoms of Drug Intoxication Withdrawal: No Advance Directives: No Advance Directives Information Provided: No Recently lost weight without trying: No Patient : No service: No Current occupational status: unemployed Cognitive needs: No Hearing needs: No Vision needs: Yes Physical Exam ED Vital Signs: Vital Signs - 24 hr 03/18/25 17:52 Temperature 98.6 F Pulse Rate 120 H Respiratory Rate 20 Blood Pressure 162/90 H Pulse Oximetry 100 Oxygen Delivery Method Room Air BMI result Body Mass Index 32.8 Const General: healthy appearing, comfortable, no acute distress, alert and awake Nutritional Appearance: well nourished Orientation/consciousness: patient oriented x3 HENMT Head: Yes normocephalic and Yes atraumatic Eyes Eyelids: Yes eyelids normal Conjunctivae: conjunctivae normal Sclerae: sclerae normal Corneas: corneas normal Pupils: Equal, round and reactive pupils present EOM: EOMs intact bilaterally Neck Neck: Yes full ROM Resp Effort & Inspection: normal respiratory effort, able to speak in complete sentences and not labored Cardio Rate: regular rate Rhythm: regular rhythm GI Inspection: No distended Palpation (GI): Soft to palpation, not firm, nontender, no guarding and not rigid Skin General skin exam: elasticity normal Neuro General: patient oriented x3 Cranial nerves: Yes Equal, round and reactive pupils present and Yes Bilaterally intact EOM present Cognition (Neuro): normal cognition Extrem Other: Moving all extremities well without any obvious deformities Course Course Course Narrative: This is a RME preformed in triage by Mercedes Jain PA-C. Date: 03/18/25, time 610 pm. Patient presents with increased nausea vomiting. Patient is seen here 2 days ago. Diagnosed with new onset of diabetes discharged home on metformin. She is not able tolerate p.o. fluids but is voiding. Reports that any food or drink makes her nauseous and vomit. Sometimes she dry heaves. She is denying any abdominal pain and has no urinary symptoms. She is feels very tired and sleepy. Parents are hoping that she can get referred to the personal protection specialist that DC. Patient's parents did touch base with primary care provider, appointment pending; past medical history significant for autism and obesity . Work UP: Repeat a labs add on UA U preg and A1c. Patient declined sublingual with Zofran Will defer full ROS and PE to treating provider. Patient will continued to be monitored in the interim. Medications Administered Generic Name Dose Route Start Last Admin Trade Name Freq PRN Reason Stop Dose Admin Enoxaparin Sodium 40 mg 03/18/25 21:00 03/18/25 22:01 Enoxaparin Sodium 40 Mg/0.4 Ml Syringe SUBCUT 40 mg Q24H NATHANIEL Administration Escitalopram Oxalate 10 mg 03/18/25 23:05 03/18/25 23:37 Escitalopram Oxalate 10 Mg Tablet PO 10 mg BEDTIME NATHANIEL Administration Dextrose/Lactated Ringer's 1,000 mls @ 100 mls/hr 03/18/25 20:45 03/19/25 17:34 D5lr IVCONT 100 mls/hr .Q10H NATHANIEL Administration Potassium Phosphate 15 mmol in 250 mls @ 62.5 mls/hr 03/19/25 06:45 03/19/25 19:43 Kphos IV 03/19/25 22:44 62.5 mls/hr Q4H NATHANIEL Administration Insulin Human Lispro 0 unit 03/19/25 11:30 03/19/25 16:21 Insulin Lispro 100 Unit/Ml 3 Ml Vial SUBCUT 03/20/25 10:30 4 unit QIDACHS [facility] Administration Protocol Ondansetron HCl 4 mg 03/19/25 03:53 03/19/25 10:26 Ondansetron Hcl 4 Mg/2 Ml Vial IVPUSH 4 mg Q6H PRN Administration Nausea and Vomiting Pantoprazole Sodium 40 mg 03/19/25 06:30 03/19/25 06:57 Pantoprazole Sodium 40 Mg/10 Ml Vial IVPUSH 40 mg DAILY@0630 [facility] Administration Vitamin D 50 mcg 03/19/25 10:30 03/19/25 11:07 Cholecalciferol (Vitamin D3) 25 Mcg Tablet PO 50 mcg DAILY [facility] Administration Discontinued Medications Generic Name Dose Route Start Last Admin Trade Name Freq PRN Reason Stop Dose Admin Acetaminophen 975 mg 03/18/25 23:04 03/18/25 23:37 Acetaminophen 325 Mg Tablet PO 03/18/25 23:05 975 mg ONCE ONE Administration Acetaminophen 975 mg 03/19/25 10:19 03/19/25 10:26 Acetaminophen 325 Mg Tablet PO 03/19/25 10:20 975 mg ONCE ONE Administration Clonidine HCl 0.1 mg 03/18/25 23:15 03/18/25 23:37 Clonidine Hcl 0.1 Mg Tablet PO 0.1 mg BEDTIME [facility] Administration Protocol Sodium Chloride 1,000 mls @ 999 mls/hr 03/18/25 19:00 03/18/25 22:01 Ns IV 03/18/25 21:00 Infused .Q1H1M [facility] Infusion Insulin Human Regular 100 unit in 100 mls @ 5 mls/hr 03/18/25 19:15 03/19/25 10:31 Myxredlin IVCONT Infused .Q20H [facility] Titration Protocol 5 UNIT/HR Dextrose/Lactated Ringer's 1,000 mls @ 100 mls/hr 03/18/25 20:45 03/18/25 21:17 D5lr IVCONT Not Given .Q10H [facility] Insulin Glargine 10 unit 03/19/25 10:30 03/19/25 10:51 Insulin Glargine,Hum.Rec.Anlog 100 Unit/Ml 10 Ml Vial SUBCUT Not Given DAILY [facility] Insulin Glargine 15 unit 03/19/25 10:54 03/19/25 11:09 Insulin Glargine,Hum.Rec.Anlog 100 Unit/Ml 10 Ml Vial SUBCUT 03/19/25 10:55 15 unit ONCE ONE Administration Insulin Human Regular 10 unit 03/18/25 20:39 03/18/25 20:59 Insulin Regular, Human 100 Unit/Ml 10 Ml Vial IVPUSH 03/18/25 20:40 10 unit ONCE ONE Administration Melatonin 6 mg 03/18/25 23:04 03/18/25 23:37 Melatonin 3 Mg Tablet PO 03/18/25 23:05 6 mg ONCE ONE Administration Ondansetron HCl 4 mg 03/18/25 18:57 03/18/25 20:03 Ondansetron Hcl 4 Mg/2 Ml Vial IVPUSH 03/18/25 18:58 4 mg ONCE ONE Administration Potassium Chloride 40 meq 03/18/25 23:40 03/18/25 23:58 Potassium Chloride Er 20 Meq Tab.Er.Prt PO 03/18/25 23:41 40 meq ONCE ONE Administration Sodium Bicarbonate 50 meq 03/19/25 03:00 03/19/25 03:27 Sodium Bicarbonate 8.4% 50 Meq/50 Ml Syringe IVPUSH 03/19/25 03:06 50 meq Q5M NATHANIEL Administration Medical Decision Making Medical Decision Making [facility] Narrative: 30-year-old female presents for evaluation of continued nausea and vomiting after a recent diagnosis of diabetes. She has been taking her metformin but has continued to have vomiting in his unclear she has been all to keep the pills down long enough. She presents today with nausea, vomiting, general malaise and weakness. On exam she is tachycardic to 120, she does not have any obvious Kussmaul respirations. She is resting comfortably in his supine position. Her abdomen is nontender. [place] [address] which is possibly reactive, there were no obvious infectious cause at this time. However, the patient's chemistries significant for a normal sodium of 139, potassium is within normal limits at 4.2, chloride of 109, a carbon dioxide of 6, anion gap that is elevated to 28 with a glucose of 338. Renal function within normal limits. LFTs are slightly elevated most likely due to her degree of acidosis and DKA. The patient's beta hydroxybutyrate is elevated to 7.75. I ordered IV fluids and an insulin drip. A VBG was also ordered which shows an acidosis with a venous gas of 7.15 and a bicarb of 6. I was able to place an 18 gauge IV in the left upper arm using ultrasound guidance Differential Diagnosis Differential Diagnoses: The differential diagnosis associated with the presentation includes DKA Metabolic acidosis LOVELY HHS Uncontrolled diabetes Admission/Observation Consideration of admission/observation: Escalation of care including admission/observation considered Patient will require admission to the hospital on likely ICU due to the need for insulin drip Consult Healthcare Provider Management of the patient was discussed with: Patrol Driver (Project Consultant, Dr. Atkins) Lab Data MDM Lab Attestation statement: I reviewed the patient's lab results. As above metabolic acidosis likely related to DKA 03/19/25 06:07 03/19/25 13:50 Labs: Lab Results 03/18/25 03/18/25 03/18/25 Range/Units 18:28 18:45 19:27 WBC 15.6 H (4.8-10.8) X10*3/uL RBC 5.56 H (4.20-5.50) X10*6/uL Hgb 15.1 (12.0-16.0) g/dl Hct 45.7 (37.0-47.0) % MCV 82.2 (80.0-98.0) fL MCH 27.2 (27.0-33.0) pg MCHC 33.0 (31.0-35.0) g/dl RDW 13.7 (11.0-16.0) % Plt Count 505 H D (160-400) X10*3/uL MPV 11.9 (9.4-12.3) fL Immature Gran % (Auto) 0.5 H (0.0-0.4) % Neut % (Auto) 84.8 H (45-73) % Lymph % (Auto) 12.0 L (20-40) % Hooker % (Auto) 2.4 (2-11) % Eos % (Auto) 0.0 (0-4) % Baso % (Auto) 0.3 (0-2) % Lymph # (Auto) 1.9 (1.2-4.9) X10*3/uL Hooker # (Auto) 0.4 (0.1-1.2) X10*3/uL Eos # (Auto) 0.0 (0.0-0.4) X10*3/uL Baso # (Auto) 0.1 (0.0-0.2) X10*3/uL Abs Immat Gran (auto) 0.08 H (0.00-0.03) X10*3/uL Absolute Neuts (auto) 13.2 H (2.0-8.3) x10*3/uL Absolute Nucleated RBC 0.000 (0.0-0.012) X10*3/uL Nucleated RBC % (auto) 0.0 (0.0-0.2) /100WBC VBG pH 7.15 L* (7.32-7.43) VBG pCO2 17 mmHg VBG pO2 68 mmHg VBG HCO3 6 L (22-26) mmol/L VBG O2 Saturation 90.0 % VBG Base Excess -19.9 mmol/L Sodium 139 (135-145) mmol/L Potassium 4.2 (3.3-5.1) mmol/L Chloride 109 H (96-108) mmol/L Carbon Dioxide 6 L* D (22-29) mmol/L Anion Gap 28 H (12-20) BUN 9 (9-16) mg/dL Creatinine 0.83 (0.5-1.4) mg/dL Estim Creat Clear Calc 114.3 Estimated GFR > 60 POC Glucose 296 H (60-115) mg/dL Fasting Glucose 338 H (60-99) mg/dL Estimat Average Glucose 255 mg/dL Hemoglobin A1c % 10.5 H (<6.0) % Lactic Acid 1.7 (0.5-2.0) mmol/L Calcium 9.3 (8.4-10.2) mg/dL Total Bilirubin 0.3 (0.0-1.0) mg/dL AST 112 H (5-31) U/L ALT 39 H (0-31) U/L Alkaline Phosphatase 123 H (39-117) U/L Total Protein 8.2 H (6.5-8.0) g/dL Albumin 5.0 (3.5-5.0) g/dL Lipase 26 (8-78) U/L Beta-Hydroxybutyrate 7.75 H (0.02-0.27) mmol/L Urine Color Urine Appearance Urine pH (5.0-9.0) Ur Specific Cory (1.005-1.025) Urine Protein (Neg-Trace) mg/dL Urine Glucose (UA) (Negative) mg/dL Urine Ketones (Negative) mg/dL Urine Blood (Negative) Urine Nitrite (Negative) Ur Leukocyte Esterase (Negative) Urine RBC (0-2) /HPF Urine WBC (0-5) /HPF Ur Squamous Epith Cells (0-2) /HPF Urine Bacteria (None Seen) Hyaline Casts (0-2) /LPF Urine Test (NEGATIVE) 03/18/25 Range/Units 20:05 WBC (4.8-10.8) X10*3/uL RBC (4.20-5.50) X10*6/uL Hgb (12.0-16.0) g/dl Hct (37.0-47.0) % MCV (80.0-98.0) fL MCH (27.0-33.0) pg MCHC (31.0-35.0) g/dl RDW (11.0-16.0) % Plt Count (160-400) X10*3/uL MPV (9.4-12.3) fL Immature Gran % (Auto) (0.0-0.4) % Neut % (Auto) (45-73) % Lymph % (Auto) (20-40) % Hooker % (Auto) (2-11) % Eos % (Auto) (0-4) % Baso % (Auto) (0-2) % Lymph # (Auto) (1.2-4.9) X10*3/uL Hooker # (Auto) (0.1-1.2) X10*3/uL Eos # (Auto) (0.0-0.4) X10*3/uL Baso # (Auto) (0.0-0.2) X10*3/uL Abs Immat Gran (auto) (0.00-0.03) X10*3/uL Absolute Neuts (auto) (2.0-8.3) x10*3/uL Absolute Nucleated RBC (0.0-0.012) X10*3/uL Nucleated RBC % (auto) (0.0-0.2) /100WBC VBG pH (7.32-7.43) VBG pCO2 mmHg VBG pO2 mmHg VBG HCO3 (22-26) mmol/L VBG O2 Saturation % VBG Base Excess mmol/L Sodium (135-145) mmol/L Potassium (3.3-5.1) mmol/L Chloride (96-108) mmol/L Carbon Dioxide (22-29) mmol/L Anion Gap (12-20) BUN (9-16) mg/dL Creatinine (0.5-1.4) mg/dL Estim Creat Clear Calc Estimated GFR POC Glucose (60-115) mg/dL Fasting Glucose (60-99) mg/dL Estimat Average Glucose mg/dL Hemoglobin A1c % (<6.0) % Lactic Acid (0.5-2.0) mmol/L Calcium (8.4-10.2) mg/dL Total Bilirubin (0.0-1.0) mg/dL AST (5-31) U/L ALT (0-31) U/L Alkaline Phosphatase (39-117) U/L Total Protein (6.5-8.0) g/dL Albumin (3.5-5.0) g/dL Lipase (8-78) U/L Beta-Hydroxybutyrate (0.02-0.27) mmol/L Urine Color Yellow Urine Appearance Clear Urine pH 5.5 (5.0-9.0) Ur Specific Cory >= 1.030 H (1.005-1.025) Urine Protein 300 (3+) H (Neg-Trace) mg/dL Urine Glucose (UA) >=1000 H (Negative) mg/dL Urine Ketones >=160 (Negative) mg/dL Urine Blood Moderate (2+) H (Negative) Urine Nitrite Negative (Negative) Ur Leukocyte Esterase Negative (Negative) Urine RBC 11-20 H (0-2) /HPF Urine WBC 0-5 (0-5) /HPF Ur Squamous Epith Cells 6-10 (0-2) /HPF Urine Bacteria None Seen (None Seen) Hyaline Casts >20 (0-2) /LPF Urine Test NEGATIVE (NEGATIVE) Critical Care Time Critical Care Time Critical Care Time: Yes Total Critical Care Time: 45 Attestation: 30-year-old female presents for evaluation of continued nausea and vomiting after recent diagnosis of diabetes. She presents in DKA with a significant metabolic acidosis and we will require ICU level of care. She was started on an insulin drip, consultation with the ICU was performed Discharge Plan Discharge Clinical Impression: Diabetic ketoacidosis Qualifiers: Diabetes mellitus type: other specified (including CAROLINE) Patient Disposition: Admitted As Inpatient Discharge Date/Time: 03/18/25 22:20
[2025-03-18 18:34] LABS: MANUAL DIFF FLAG NO
[2025-03-18 18:36] LABS: Hematocrit 45.7 % (37.0-47.0); Hemoglobin 15.1 g/dl (12.0-16.0); Imm Gran Abs Auto 0.08 X10*3/uL (0.00-0.03); Imm Gran Pct Auto 0.5 % (0.0-0.4); Lymphocytes Absolute Auto 1.9 X10*3/uL (1.2-4.9); Mean Corpuscular HGB Conc 33.0 g/dl (31.0-35.0); Mean Corpuscular Hemoglobin 27.2 pg (27.0-33.0); Mean Corpuscular Volume 82.2 fL (80.0-98.0); NRBC Abs Auto 0.000 X10*3/uL (0.0-0.012); NRBC Pct Auto 0.0 /100WBC (0.0-0.2); Platelet Count 505 X10*3/uL (160-400); Red Blood Count 5.56 X10*6/uL (4.20-5.50); White Blood Count 15.6 X10*3/uL (4.8-10.8)
[2025-03-18 19:05] LABS: Alanine Aminotransferase 39 U/L (0-31); Albumin Level 5.0 g/dL (3.5-5.0); Alkaline Phosphatase 123 U/L (39-117); Anion Gap 28 (12-20); Aspartate Amino Transferase 112 U/L (5-31); Blood Urea Nitrogen 9 mg/dL (9-16); Calcium 9.3 mg/dL (8.4-10.2); Carbon Dioxide 6 mmol/L (22-29); Chloride 109 mmol/L (96-108); Creatinine Clr Calc Pharmacy 114.3; Estimated Glomerular Filt Rate > 60; Lipase 26 U/L (8-78); Potassium 4.2 mmol/L (3.3-5.1); Sodium 139 mmol/L (135-145); Total Protein 8.2 g/dL (6.5-8.0)
[2025-03-18 19:35] LABS: VBG HCO3 6 mmol/L (22-26); VBG O2 % Saturation 90.0 %
[2025-03-18 19:36] LABS: Venous Blood Gas Refer to POC result
[2025-03-18 19:53] LABS: Glucose, Whole Blood 296 mg/dL (60-115)
--- NOTE | 2025-03-18 20:01 | ECG_ITS ---
Test Reason : TACHY Blood Pressure : */* mmHG Vent. Rate : 106 BPM Atrial Rate : 106 BPM P-R Int : 134 ms QRS Dur : 80 ms QT Int : 378 ms P-R-T Axes : 50 16 -22 degrees QTcB Int : 502 ms Sinus tachycardia Minimal voltage criteria for LVH, may be normal variant ( R in aVL ) T wave abnormality, consider inferior ischemia T wave abnormality, consider anterior ischemia Abnormal ECG No previous ECGs available Referred By: Bob Cano Electronically Signed By: Newton Dee
[2025-03-18] MEDS: Insulin Regular/NS 100 UNIT/100 ML PLAST..BAG IVCONT (20:02)
[2025-03-18 20:13] LABS: Appearance Urine Clear; Glucose Urine UA >=1000 mg/dL (Negative); PH 5.5 (5.0-9.0); Specific Gravity - Urine >= 1.030 (1.005-1.025); UMIC TRIGGER UACC YES; UPreg QC Valid YES
--- NOTE | 2025-03-18 20:39 | P.HPCC_ITS ---
History of Present Illness Date of Service: 03/18/25 Attending physician on admission: Gagan Atkins Chief Complaint: DKA The patient is a 30-year-old female with underlying history of obesity and autism who reportedly was seen in the emergency room here 2 days ago due to increased nausea and vomiting, diagnosed with new onset diabetes and discharged on metformin, PCP and audiovisual production specialist referral.? The patient has continued to feel sick, unable to tolerate any fluids or food.? The patient has had continuous retching and has not be able to tolerate anything by mouth, denied abdominal pain, urinary symptoms but family stated the patient is very sleepy and tired. The patient came back today with worsening symptoms, they are evaluation reveal a normotensive but tachycardic patient looking ill and weak, her workup revealed a white count 15.6, H and H of 15 and 45 respectively, platelets 5 of 5.? Venous blood gas pH 7.15, pCO2 17, PO2 68, bicarb 6.? Sodium 139, potassium 4.2, chloride 109, carbon dioxide 6, anion gap 28, BUN 9, creatinine 0.83, lactic acid 1.7, HCT 112, ALT 39, lipase 26, beta hydroxybutyrate acid 7.75.? Urinalysis shows proteinuria and glucosuria, no evidence of UTI.? Urine test negative.? EKG to my review shows sinus tachycardia rate of 106 beats per minute.? There is no ST elevations no ST depressions.? Possible T-wave flattening the anterior inferior leads.? No comparison available. ?The patient had been treated with 2 L of IV fluid, placed on an insulin drip. ?The patient will be admitted to ICU for further care. Review of Systems 2 Review of Systems: Review of systems: As above, otherwise the patient denies any prior history of strokes, cold intolerance, migraine headaches, head trauma, no eyes, ears or nose problems, no problems swallowing or with phonation, no thyroid disease, denies any history of chest pain, palpitations, coronary disease, cough, sputum production, pneumonia, bronchitis, COPD or emphysema, abdominal pain, diarrhea, abdominal surgeries, melena, hematochezia, hematemesis, hematuria, kidney stones, liver problems, immunocompromise state of any kind, no history of DVT or PE, leg edema, fractures or extremity surgeries all other review of systems were reviewed and they were all negative. Yes all other systems are reviewed and are negative PMFSH Past Medical History Medical History Autistic disorder Family History Family History Father No problems noted. Mother No problems noted. Surgical History Surgical History No pertinent past surgical history Social History Social History Household Members: Family Housing: House Do you presently have visiting nurse or other home services: No Alcohol intake: never Patient Tobacco Use Status: Never used Tobacco Smoked in Last 30 Days: No e-Cigarette/Vaping Use: Never Used Use of substances other than those prescribed or required for medical reasons: No Advance Directives: No Advance Directives Information Provided: No Recently lost weight without trying: No Patient : No service: No Current occupational status: unemployed Cognitive needs: No Hearing needs: No Vision needs: Yes Meds Allergies Allergy/AdvReac Type Severity Reaction Status Date / Time No Known Allergies Allergy Verified 03/18/25 17:55 Active Medications: Current Medications Dextrose (Dextrose 50 % 25 Gm/50 Ml Syringe) 25 gm IVPUSH Q30M PRN PRN Reason: BG < 70 Enoxaparin Sodium (Enoxaparin Sodium 40 Mg/0.4 Ml Syringe) 40 mg SUBCUT Q24H [facility] Sodium Chloride (Ns) 1,000 mls @ 999 mls/hr IV .Q1H1M NATHANIEL Stop: 03/18/25 21:00 Last Admin: 03/18/25 20:01 Dose: 999 mls/hr Insulin Human Regular (Myxredlin) 100 unit in 100 mls @ 5 mls/hr IVCONT .Q20H NATHANIEL; Protocol Last Admin: 03/18/25 20:02 Dose: 5 unit/hr, 5 mls/hr Dextrose/Lactated Ringer's (D5lr) 1,000 mls @ 100 mls/hr IVCONT .Q10H NATHANIEL Pantoprazole Sodium (Pantoprazole Sodium 40 Mg/10 Ml Vial) 40 mg IVPUSH DAILY@0630 [facility] Physical Exam 2 Vital Signs: Vital Signs: Last Vital Signs Temp 98.6 F 03/18/25 17:52 Pulse 120 H 03/18/25 17:52 Resp 20 03/18/25 17:52 BP 162/90 H 03/18/25 17:52 Pulse Ox 100 03/18/25 17:52 O2 Del Method Room Air 03/18/25 17:52 BMI result Body Mass Index 32.8 General:? Alert oriented x3 no acute distress, very pleasant, the patient's mom at bedside. No accessory muscle usage.? Following all commands. Skin:? Thin, Intact, no lesions, edema, erythema, clubbing or cyanosis.? No ulcers. HEENT:? Head is normocephalic, atraumatic, pupils equal. Buccal mucosa is dry Neck is supple without lymphadenopathy. Cardiac:? Clear S1-S2, no murmurs rubs or gallops. Pulmonary:? Diminished lung sounds bilaterally fine expiratory wheezing bilaterally .? No crackles, rales or rhonchi. Abdomen:? Protuberant, positive bowel sounds in all 4 quadrants.? Soft, nontender, no rebound or guarding.? There is no Laura's sign. Musculoskeletal:? Moving all 4 extremities upon request a major joints, there is no crepitus or tenderness.? The strength is 5/5 bilaterally and throughout all 4 extremities.? There is no leg edema , no calf tenderness , no leg asymmetry.? Gait not assessed at this point. Neurologic:? As above.? No focal deficits noted. Vascular:? 2+ pulses upper and lower extremities distally.? Less than 2nd capillary refill of fingers and toes bilaterally upper and lower extremities Results Labs 03/18/25 18:28 03/19/25 02:08 Labs: Laboratory Results - last 24 hr 03/18/25 03/18/25 03/18/25 18:28 18:45 19:27 MCV 82.2 MCH 27.2 MCHC 33.0 RDW 13.7 Plt Count 505 H D MPV 11.9 Immature Gran % (Auto) 0.5 H Neut % (Auto) 84.8 H Lymph % (Auto) 12.0 L [place] % (Auto) 2.4 Eos % (Auto) 0.0 Baso % (Auto) 0.3 Lymph # (Auto) 1.9 [place] # (Auto) 0.4 Eos # (Auto) 0.0 Baso # (Auto) 0.1 Abs Immat Gran (auto) 0.08 H Absolute Neuts (auto) 13.2 H Absolute Nucleated RBC 0.000 Nucleated RBC % (auto) 0.0 VBG pH 7.15 L* VBG pCO2 17 VBG pO2 68 VBG HCO3 6 L VBG O2 Saturation 90.0 VBG Base Excess -19.9 Anion Gap 28 H Estim Creat Clear Calc 114.3 Estimated GFR > 60 POC Glucose 296 H Fasting Glucose 338 H Lactic Acid 1.7 Calcium 9.3 Total Bilirubin 0.3 AST 112 H ALT 39 H Alkaline Phosphatase 123 H Total Protein 8.2 H Albumin 5.0 Lipase 26 Beta-Hydroxybutyrate 7.75 H Urine Color Urine Appearance Urine pH Ur Specific [place] Urine Protein Urine Glucose (UA) Urine Ketones Urine Blood Urine Nitrite Ur Leukocyte Esterase Urine RBC Urine WBC Ur Squamous Epith Cells Urine Bacteria Hyaline Casts Urine Test 03/18/25 20:05 MCV MCH MCHC RDW Plt Count MPV Immature Gran % (Auto) Neut % (Auto) Lymph % (Auto) [place] % (Auto) Eos % (Auto) Baso % (Auto) Lymph # (Auto) [place] # (Auto) Eos # (Auto) Baso # (Auto) Abs Immat Gran (auto) Absolute Neuts (auto) Absolute Nucleated RBC Nucleated RBC % (auto) VBG pH VBG pCO2 VBG pO2 VBG HCO3 VBG O2 Saturation VBG Base Excess Anion Gap Estim Creat Clear Calc Estimated GFR POC Glucose Fasting Glucose Lactic Acid Calcium Total Bilirubin AST ALT Alkaline Phosphatase Total Protein Albumin Lipase Beta-Hydroxybutyrate Urine Color Yellow Urine Appearance Clear Urine pH 5.5 Ur Specific [place] >= 1.030 H Urine Protein 300 (3+) H Urine Glucose (UA) >=1000 H Urine Ketones >=160 Urine Blood Moderate (2+) H Urine Nitrite Negative Ur Leukocyte Esterase Negative Urine RBC 11-20 H Urine WBC 0-5 Ur Squamous Epith Cells 6-10 Urine Bacteria None Seen Hyaline Casts >20 Urine Test NEGATIVE Assessment and Plan (1) Diabetic ketoacidosis: Qualifiers: Diabetes mellitus type: other specified (including CAROLINE) Status: Acute Plan 1. Acute DKA 2. New onset diabetes perhaps late type I vs CAROLINE vs DM II 3. Acute metabolic acidosis due to 1. 4. Nausea and vomiting due to 1. 5. Reactive leukocytosis 6. Dehydration hemo concentration 7. Illness related thrombocytosis 8. Reactive transaminitis 9. Proteinuria and glucosuria due to 1. PLAN OF CARE: The patient will be admitted to the ICU, monitor vital signs, I's and O's, the patient has received insulin bolus and currently on an insulin drip which will be continued until the anion gap closes, in the meantime we will check blood sugars every 1 hour and adjust the drip as needed, repeat chemistry every 4 hours and correct electrolytes.? Zofran PRN, we will continue with IV fluids and request diabetic education.? The patient may need endocrinology evaluation while in the hospital. GI PROPHYLAXIS:? IV Protonix DVT PROPHYLAXIS:? Lovenox subQ Critical care time used for critical evaluation of this patient, diagnosis, treatment and coordination of care, review her records and documentation TOTAL CRITICAL CARE TIME?? 75 MIN . discussion and coordination with consultants, completely separate from any procedures performed. Patient's care was discussed in detail with Dr. Atkins who is aware of all the above as well as the plan of care for this patient. Total time managing care of this patient today: 75 minutes.
[2025-03-18 20:44] LABS: Glucose, Whole Blood 286 mg/dL (60-115)
[2025-03-18] MEDS: Dextrose 5 % and Lactated Ring 1,000 ML 100 ML IVCONT (21:14)
--- NOTE | 2025-03-18 21:22 | PC.NURSE ---
Addendum entered by Suzanne Burton RN 03/18/25 21:30: nurse to nurse report given to Mary ROJAS in ICU. Original Note: assumed care for pt at 1900, Jc LEONARD, alerted pt in DKA. Went into pt room with tech to update pt on plan of care, placed pt on monitor and attempted IV line placement, pt difficult stick, ultrasoundguided 18G IV placed by Jc LEONARD in Left upperarm, pt tolerated well. pt started on insulin drip , verified with Tamy ROJAS. Pt alert and oriented, speaking in full clear sentences, and able to make her needs known. Pts mother and uncle are bedside.
[2025-03-18 22:22] VITALS: BP 143/71; PULSE 100; RESP 28; TEMP 36.9; O2SAT 100
[2025-03-18 22:31] LABS: Glucose, Whole Blood 199 mg/dL (60-115)
[2025-03-18 23:00] VITALS: BP 143/71; PULSE 104; RESP 17; O2SAT 100
[2025-03-18 23:09] LABS: Alanine Aminotransferase 27 U/L (0-31); Albumin Level 4.1 g/dL (3.5-5.0); Alkaline Phosphatase 99 U/L (39-117); Anion Gap 22 (12-20); Aspartate Amino Transferase 81 U/L (5-31); Blood Urea Nitrogen 7 mg/dL (9-16); Calcium 8.2 mg/dL (8.4-10.2); Carbon Dioxide 5 mmol/L (22-29); Chloride 115 mmol/L (96-108); Creatinine Clr Calc Pharmacy 121.7; Estimated Glomerular Filt Rate > 60; Potassium 3.6 mmol/L (3.3-5.1); Sodium 138 mmol/L (135-145); Total Protein 6.9 g/dL (6.5-8.0)
[2025-03-18 23:37] LABS: Glucose, Whole Blood 184 mg/dL (60-115)
[2025-03-18] MEDS: Potassium Chloride ER 20 MEQ TAB.ER.PRT 40 MEQ PO (23:58)
[2025-03-19] VITALS (15 sets, daily range): BP systolic 97–146; BP diastolic 44–81; PULSE 70–91; RESP 14–24; TEMP 36.2–37.2; O2SAT 96–100
[2025-03-19 01:36] LABS: Glucose, Whole Blood 180 mg/dL (60-115)
[2025-03-19 01:36] LABS: Glucose, Whole Blood 188 mg/dL (60-115)
[2025-03-19 02:37] LABS: Glucose, Whole Blood 175 mg/dL (60-115)
[2025-03-19 02:44] LABS: Alanine Aminotransferase 25 U/L (0-31); Albumin Level 3.9 g/dL (3.5-5.0); Alkaline Phosphatase 93 U/L (39-117); Anion Gap 18 (12-20); Aspartate Amino Transferase 71 U/L (5-31); Blood Urea Nitrogen 6 mg/dL (9-16); Calcium 8.4 mg/dL (8.4-10.2); Carbon Dioxide 9 mmol/L (22-29); Chloride 115 mmol/L (96-108); Creatinine Clr Calc Pharmacy 120.2; Estimated Glomerular Filt Rate > 60; Potassium 4.3 mmol/L (3.3-5.1); Sodium 138 mmol/L (135-145); Total Protein 6.4 g/dL (6.5-8.0)
[2025-03-19 03:33] LABS: Glucose, Whole Blood 170 mg/dL (60-115)
[2025-03-19 03:50] LABS: Hemoglobin A1C 340.0710 umol/L; Total Hemoglobin (HGBA1C) 3726.4772 umol/L
[2025-03-19 04:40] LABS: Glucose, Whole Blood 160 mg/dL (60-115)
[2025-03-19 05:32] LABS: Glucose, Whole Blood 164 mg/dL (60-115)
[2025-03-19 06:13] LABS: MANUAL DIFF FLAG NO; Venous Blood Gas Refer to POC result
[2025-03-19 06:19] LABS: VBG HCO3 14 mmol/L (22-26); VBG O2 % Saturation 98.0 %
[2025-03-19 06:38] LABS: Glucose, Whole Blood 173 mg/dL (60-115)
[2025-03-19 06:39] LABS: Alanine Aminotransferase 23 U/L (0-31); Albumin Level 3.8 g/dL (3.5-5.0); Alkaline Phosphatase 86 U/L (39-117); Anion Gap 15 (12-20); Aspartate Amino Transferase 67 U/L (5-31); Blood Urea Nitrogen 6 mg/dL (9-16); Calcium 8.4 mg/dL (8.4-10.2); Carbon Dioxide 15 mmol/L (22-29); Chloride 114 mmol/L (96-108); Creatinine Clr Calc Pharmacy 130.1; Estimated Glomerular Filt Rate > 60; Magnesium 1.9 mg/dL (1.6-2.6); Potassium 3.1 mmol/L (3.3-5.1); Sodium 141 mmol/L (135-145); Total Protein 6.1 g/dL (6.5-8.0)
[2025-03-19 06:57] LABS: Hematocrit 37.0 % (37.0-47.0); Hemoglobin 11.9 g/dl (12.0-16.0); Imm Gran Abs Auto 0.06 X10*3/uL (0.00-0.03); Imm Gran Pct Auto 0.6 % (0.0-0.4); Lymphocytes Absolute Auto 2.6 X10*3/uL (1.2-4.9); Mean Corpuscular HGB Conc 32.2 g/dl (31.0-35.0); Mean Corpuscular Hemoglobin 26.9 pg (27.0-33.0); Mean Corpuscular Volume 83.5 fL (80.0-98.0); NRBC Abs Auto 0.000 X10*3/uL (0.0-0.012); NRBC Pct Auto 0.0 /100WBC (0.0-0.2); Platelet Count 316 X10*3/uL (160-400); Red Blood Count 4.43 X10*6/uL (4.20-5.50); White Blood Count 10.4 X10*3/uL (4.8-10.8)
[2025-03-19] MEDS: Potassium Phosphate/NS 15 MMOL/250 ML PLAST..BAG 62.5 MMOL IV ×4 (06:57→19:43)
[2025-03-19] MEDS: Dextrose 5 % and Lactated Ring 1,000 ML 100 ML IVCONT ×2 (06:57→17:34)
[2025-03-19 07:07] LABS: Glucose, Whole Blood 169 mg/dL (60-115)
[2025-03-19 08:05] LABS: Glucose, Whole Blood 162 mg/dL (60-115)
[2025-03-19 09:07] LABS: Glucose, Whole Blood 142 mg/dL (60-115)
[2025-03-19] MEDS: Insulin Regular/NS 100 UNIT/100 ML PLAST..BAG 6 UNIT IVCONT (09:11)
--- NOTE | 2025-03-19 09:13 | PC.NURSE ---
Informed MD of pt's POC and current insulin drip rate. Protocol has been followed and drip titrated accordingly.
[2025-03-19 10:06] LABS: Glucose, Whole Blood 157 mg/dL (60-115)
--- NOTE | 2025-03-19 10:11 | PHA.MEDREC ---
Addendum entered by Chrissie Vásquez RPh 03/19/25 10:56: REVIEWED BY [facility] Original Note: Pharmacy Consult ? Medication Reconciliation Pharmacy has completed the medication reconciliation. Spoke with patients mom at bedside to confirm medications. Mom confirmed she started metformin at home. Melatonin and clonidine are taken at bedtime every night.
[2025-03-19 10:28] LABS: Alanine Aminotransferase 24 U/L (0-31); Albumin Level 3.9 g/dL (3.5-5.0); Alkaline Phosphatase 91 U/L (39-117); Anion Gap 12 (12-20); Aspartate Amino Transferase 78 U/L (5-31); Blood Urea Nitrogen 6 mg/dL (9-16); Calcium 8.7 mg/dL (8.4-10.2); Carbon Dioxide 18 mmol/L (22-29); Chloride 115 mmol/L (96-108); Creatinine Clr Calc Pharmacy 137.5; Estimated Glomerular Filt Rate > 60; Potassium 3.4 mmol/L (3.3-5.1); Sodium 142 mmol/L (135-145); Total Protein 6.2 g/dL (6.5-8.0)
--- NOTE | 2025-03-19 10:57 | MHC.CM.PN ---
CM MET WITH PT AND MOTHER IN ICU AT BEDSIDE. PT LIVES WITH FAMILY AND IS FUNCTIONALLY INDEPENDENT. NO SERVICES. PT DECLINES TO COMPLETE A HCP AT THIS TIME, MOTHER STATES SHE HAS A BLANK COPY AT HOME AND WILL HAVE HER COMPLETE WHEN SHE IS FEELING BETTER. PCP BHAVNA LEONARD AT [facility] [place]. DP: HOME, NO SERVICES, PT DOES NOT WISH TO HAVE A VNA FAMILY IS WELL VERSED IN DIABETES CARE. PT WILL NEED A LYFT RIDE HOME ON DC. CM WILL CONTINUE TO FOLLOW FOR ANY CHANGE TO DC PLAN/NEEDS.
[2025-03-19] MEDS: Insulin Glargine,Hum.rec.anlog 100 UNIT/ML 10 ML VIAL 15 UNIT SUBCUT (11:09)
--- NOTE | 2025-03-19 11:26 | P.PNCC_ITS ---
Subjective Subjective Date of Service: 03/19/25 Interval History: Complaints of hunger pain and asked that she wants to eat something. DKA resolved, gap closed Critical Care Time (minutes): 35 Physical Exam 2 Vital Signs: Vital Signs: Last Vital Signs Temp 98.1 F 03/19/25 08:00 Pulse 89 03/19/25 10:00 Resp 17 03/19/25 10:00 BP 126/61 03/19/25 10:00 Pulse Ox 98 03/19/25 10:00 O2 Del Method Room Air 03/19/25 10:00 BMI result Body Mass Index 32.8 General: Young lady in no acute distress, sitting in the bed Nutritional Appearance: well nourished and overweight Eyes: appearance normal, both eyes and all related structures; Alignment and Position: alignment normal and position normal Neck: No lymphadenopathy, no thyromegaly Resp: bilateral air entry equal, no added sounds present Cardio: Regular rate, regular rhythm; Heart sounds: S1 normal heart sound present and S2 normal heart sound present GI: soft, nontender, no guarding, no hepatosplenomegaly : bladder normal to inspection, bladder normal to palpation, no renal angle tenderness Skin: no rashes or lesions noted and elasticity normal Neuro: oriented to person, oriented to place, oriented to time and moves all extremities Objective Data Labs 03/19/25 06:07 03/19/25 10:01 Labs: Laboratory Results - last 24 hr 03/18/25 03/18/25 03/18/25 18:28 18:45 19:27 WBC 15.6 H RBC 5.56 H Hgb 15.1 Hct 45.7 MCV 82.2 MCH 27.2 MCHC 33.0 RDW 13.7 Plt Count 505 H D MPV 11.9 Immature Gran % (Auto) 0.5 H Neut % (Auto) 84.8 H Lymph % (Auto) 12.0 L [place] % (Auto) 2.4 Eos % (Auto) 0.0 Baso % (Auto) 0.3 Lymph # (Auto) 1.9 [place] # (Auto) 0.4 Eos # (Auto) 0.0 Baso # (Auto) 0.1 Abs Immat Gran (auto) 0.08 H Absolute Neuts (auto) 13.2 H Absolute Nucleated RBC 0.000 Nucleated RBC % (auto) 0.0 Hold Purple Top VBG pH 7.15 L* VBG pCO2 17 VBG pO2 68 VBG HCO3 6 L VBG O2 Saturation 90.0 VBG Base Excess -19.9 Sodium 139 Potassium 4.2 Chloride 109 H Carbon Dioxide 6 L* D Anion Gap 28 H BUN 9 Creatinine 0.83 Estim Creat Clear Calc 114.3 Estimated GFR > 60 POC Glucose 296 H Random Glucose Fasting Glucose 338 H Estimat Average Glucose 255 Hemoglobin A1c % 10.5 H Lactic Acid 1.7 Calcium 9.3 Phosphorus Magnesium Total Bilirubin 0.3 AST 112 H ALT 39 H Alkaline Phosphatase 123 H Total Protein 8.2 H Albumin 5.0 Lipase 26 Beta-Hydroxybutyrate 7.75 H Urine Color Urine Appearance Urine pH Ur Specific [place] Urine Protein Urine Glucose (UA) Urine Ketones Urine Blood Urine Nitrite Ur Leukocyte Esterase Urine RBC Urine WBC Ur Squamous Epith Cells Urine Bacteria Hyaline Casts Urine Test 03/18/25 03/18/25 03/18/25 20:05 20:38 22:24 WBC RBC Hgb Hct MCV MCH MCHC RDW Plt Count MPV Immature Gran % (Auto) Neut % (Auto) Lymph % (Auto) [place] % (Auto) Eos % (Auto) Baso % (Auto) Lymph # (Auto) [place] # (Auto) Eos # (Auto) Baso # (Auto) Abs Immat Gran (auto) Absolute Neuts (auto) Absolute Nucleated RBC Nucleated RBC % (auto) Hold Purple Top VBG pH VBG pCO2 VBG pO2 VBG HCO3 VBG O2 Saturation VBG Base Excess Sodium Potassium Chloride Carbon Dioxide Anion Gap BUN Creatinine Estim Creat Clear Calc Estimated GFR POC Glucose 286 H 199 H Random Glucose Fasting Glucose Estimat Average Glucose Hemoglobin A1c % Lactic Acid Calcium Phosphorus Magnesium Total Bilirubin AST ALT Alkaline Phosphatase Total Protein Albumin Lipase Beta-Hydroxybutyrate Urine Color Yellow Urine Appearance Clear Urine pH 5.5 Ur Specific [place] >= 1.030 H Urine Protein 300 (3+) H Urine Glucose (UA) >=1000 H Urine Ketones >=160 Urine Blood Moderate (2+) H Urine Nitrite Negative Ur Leukocyte Esterase Negative Urine RBC 11-20 H Urine WBC 0-5 Ur Squamous Epith Cells 6-10 Urine Bacteria None Seen Hyaline Casts >20 Urine Test NEGATIVE 03/18/25 03/18/25 03/19/25 22:45 23:32 00:38 WBC RBC Hgb Hct MCV MCH MCHC RDW Plt Count MPV Immature Gran % (Auto) Neut % (Auto) Lymph % (Auto) [place] % (Auto) Eos % (Auto) Baso % (Auto) Lymph # (Auto) [place] # (Auto) Eos # (Auto) Baso # (Auto) Abs Immat Gran (auto) Absolute Neuts (auto) Absolute Nucleated RBC Nucleated RBC % (auto) Hold Purple Top SEE NOTE VBG pH VBG pCO2 VBG pO2 VBG HCO3 VBG O2 Saturation VBG Base Excess Sodium 138 Potassium 3.6 Chloride 115 H Carbon Dioxide 5 L* Anion Gap 22 H BUN 7 L Creatinine 0.78 Estim Creat Clear Calc 121.7 Estimated GFR > 60 POC Glucose 184 H 180 H Random Glucose 207 H Fasting Glucose Estimat Average Glucose Hemoglobin A1c % Lactic Acid Calcium 8.2 L D Phosphorus Magnesium Total Bilirubin 0.2 AST 81 H ALT 27 Alkaline Phosphatase 99 Total Protein 6.9 Albumin 4.1 Lipase Beta-Hydroxybutyrate Urine Color Urine Appearance Urine pH Ur Specific [place] Urine Protein Urine Glucose (UA) Urine Ketones Urine Blood Urine Nitrite Ur Leukocyte Esterase Urine RBC Urine WBC Ur Squamous Epith Cells Urine Bacteria Hyaline Casts Urine Test 03/19/25 03/19/25 03/19/25 01:30 02:08 02:31 WBC RBC Hgb Hct MCV MCH MCHC RDW Plt Count MPV Immature Gran % (Auto) Neut % (Auto) Lymph % (Auto) [place] % (Auto) Eos % (Auto) Baso % (Auto) Lymph # (Auto) [place] # (Auto) Eos # (Auto) Baso # (Auto) Abs Immat Gran (auto) Absolute Neuts (auto) Absolute Nucleated RBC Nucleated RBC % (auto) Hold Purple Top VBG pH VBG pCO2 VBG pO2 VBG HCO3 VBG O2 Saturation VBG Base Excess Sodium 138 Potassium 4.3 Chloride 115 H Carbon Dioxide 9 L* D Anion Gap 18 BUN 6 L Creatinine 0.79 Estim Creat Clear Calc 120.2 Estimated GFR > 60 POC Glucose 188 H 175 H Random Glucose 175 H Fasting Glucose Estimat Average Glucose Hemoglobin A1c % Lactic Acid Calcium 8.4 Phosphorus Magnesium Total Bilirubin 0.3 AST 71 H ALT 25 Alkaline Phosphatase 93 Total Protein 6.4 L Albumin 3.9 Lipase Beta-Hydroxybutyrate Urine Color Urine Appearance Urine pH Ur Specific [place] Urine Protein Urine Glucose (UA) Urine Ketones Urine Blood Urine Nitrite Ur Leukocyte Esterase Urine RBC Urine WBC Ur Squamous Epith Cells Urine Bacteria Hyaline Casts Urine Test 03/19/25 03/19/25 03/19/25 03:29 04:36 05:29 WBC RBC Hgb Hct MCV MCH MCHC RDW Plt Count MPV Immature Gran % (Auto) Neut % (Auto) Lymph % (Auto) [place] % (Auto) Eos % (Auto) Baso % (Auto) Lymph # (Auto) [place] # (Auto) Eos # (Auto) Baso # (Auto) Abs Immat Gran (auto) Absolute Neuts (auto) Absolute Nucleated RBC Nucleated RBC % (auto) Hold Purple Top VBG pH VBG pCO2 VBG pO2 VBG HCO3 VBG O2 Saturation VBG Base Excess Sodium Potassium Chloride Carbon Dioxide Anion Gap BUN Creatinine Estim Creat Clear Calc Estimated GFR POC Glucose 170 H 160 H 164 H Random Glucose Fasting Glucose Estimat Average Glucose Hemoglobin A1c % Lactic Acid Calcium Phosphorus Magnesium Total Bilirubin AST ALT Alkaline Phosphatase Total Protein Albumin Lipase Beta-Hydroxybutyrate Urine Color Urine Appearance Urine pH Ur Specific [place] Urine Protein Urine Glucose (UA) Urine Ketones Urine Blood Urine Nitrite Ur Leukocyte Esterase Urine RBC Urine WBC Ur Squamous Epith Cells Urine Bacteria Hyaline Casts Urine Test 03/19/25 03/19/25 03/19/25 06:07 06:13 06:34 WBC 10.4 RBC 4.43 D Hgb 11.9 L D Hct 37.0 MCV 83.5 MCH 26.9 L MCHC 32.2 RDW 13.6 Plt Count 316 D MPV 12.0 Immature Gran % (Auto) 0.6 H Neut % (Auto) 64.5 Lymph % (Auto) 25.1 [place] % (Auto) 9.2 Eos % (Auto) 0.1 Baso % (Auto) 0.5 Lymph # (Auto) 2.6 [place] # (Auto) 1.0 Eos # (Auto) 0.0 Baso # (Auto) 0.1 Abs Immat Gran (auto) 0.06 H Absolute Neuts (auto) 6.7 Absolute Nucleated RBC 0.000 Nucleated RBC % (auto) 0.0 Hold Purple Top VBG pH 7.33 VBG pCO2 26 VBG pO2 85 VBG HCO3 14 L VBG O2 Saturation 98.0 VBG Base Excess -10.0 Sodium 141 Potassium 3.1 L D Chloride 114 H Carbon Dioxide 15 L Anion Gap 15 BUN 6 L Creatinine 0.73 Estim Creat Clear Calc 130.1 Estimated GFR > 60 POC Glucose 173 H Random Glucose 177 H Fasting Glucose Estimat Average Glucose Hemoglobin A1c % Lactic Acid Calcium 8.4 Phosphorus 0.6 L* Magnesium 1.9 Total Bilirubin 0.3 AST 67 H ALT 23 Alkaline Phosphatase 86 Total Protein 6.1 L Albumin 3.8 Lipase Beta-Hydroxybutyrate Urine Color Urine Appearance Urine pH Ur Specific [place] Urine Protein Urine Glucose (UA) Urine Ketones Urine Blood Urine Nitrite Ur Leukocyte Esterase Urine RBC Urine WBC Ur Squamous Epith Cells Urine Bacteria Hyaline Casts Urine Test 03/19/25 03/19/25 03/19/25 07:02 08:00 09:02 WBC RBC Hgb Hct MCV MCH MCHC RDW Plt Count MPV Immature Gran % (Auto) Neut % (Auto) Lymph % (Auto) [place] % (Auto) Eos % (Auto) Baso % (Auto) Lymph # (Auto) [place] # (Auto) Eos # (Auto) Baso # (Auto) Abs Immat Gran (auto) Absolute Neuts (auto) Absolute Nucleated RBC Nucleated RBC % (auto) Hold Purple Top VBG pH VBG pCO2 VBG pO2 VBG HCO3 VBG O2 Saturation VBG Base Excess Sodium Potassium Chloride Carbon Dioxide Anion Gap BUN Creatinine Estim Creat Clear Calc Estimated GFR POC Glucose 169 H 162 H 142 H Random Glucose Fasting Glucose Estimat Average Glucose Hemoglobin A1c % Lactic Acid Calcium Phosphorus Magnesium Total Bilirubin AST ALT Alkaline Phosphatase Total Protein Albumin Lipase Beta-Hydroxybutyrate Urine Color Urine Appearance Urine pH Ur Specific [place] Urine Protein Urine Glucose (UA) Urine Ketones Urine Blood Urine Nitrite Ur Leukocyte Esterase Urine RBC Urine WBC Ur Squamous Epith Cells Urine Bacteria Hyaline Casts Urine Test 03/19/25 10:01 WBC RBC Hgb Hct MCV MCH MCHC RDW Plt Count MPV Immature Gran % (Auto) Neut % (Auto) Lymph % (Auto) [place] % (Auto) Eos % (Auto) Baso % (Auto) Lymph # (Auto) [place] # (Auto) Eos # (Auto) Baso # (Auto) Abs Immat Gran (auto) Absolute Neuts (auto) Absolute Nucleated RBC Nucleated RBC % (auto) Hold Purple Top VBG pH VBG pCO2 VBG pO2 VBG HCO3 VBG O2 Saturation VBG Base Excess Sodium 142 Potassium 3.4 Chloride 115 H Carbon Dioxide 18 L Anion Gap 12 BUN 6 L Creatinine 0.69 Estim Creat Clear Calc 137.5 Estimated GFR > 60 POC Glucose 157 H Random Glucose 169 H Fasting Glucose Estimat Average Glucose Hemoglobin A1c % Lactic Acid Calcium 8.7 Phosphorus Magnesium Total Bilirubin 0.4 AST 78 H ALT 24 Alkaline Phosphatase 91 Total Protein 6.2 L Albumin 3.9 Lipase Beta-Hydroxybutyrate Urine Color Urine Appearance Urine pH Ur Specific [place] Urine Protein Urine Glucose (UA) Urine Ketones Urine Blood Urine Nitrite Ur Leukocyte Esterase Urine RBC Urine WBC Ur Squamous Epith Cells Urine Bacteria Hyaline Casts Urine Test Progress Note: A&P Assessment and plan (1) Hyperglycemia: Status: Acute (2) Diabetic ketoacidosis: Status: Acute (3) Vitamin D deficiency: Status: Acute Plan Diabetic ketoacidosis: Newly diagnosed DKA during the ER visit 3 days ago, discharged home on metformin 500 mg b.i.d. not on insulin Hemoglobin A1c 10.5. Yet to establish outpatient care for diabetes. Has a strong family history of diabetes mellitus Gap Close twice, insulin drip stopped, switch to Lantus 15 units daily along with sliding scale insulin We will start on diabetic diet Has autism at baseline, we will restart home Lexapro and clonidine Okay to take home oral contraceptive pill to prevent periods Lovenox and pantoprazole for prophylaxis We will transfer her to floor Quality Stroke Does the patient have a stroke diagnosis?: No VTE Prior VTE?: No VTE Risk Level:: Medical - moderate - high VTE Device Contraindication: N/A - Device Ordered VTE Drug Contraindication: N/A - Med Ordered
[2025-03-19 11:35] LABS: Glucose, Whole Blood 156 mg/dL (60-115)
[2025-03-19 11:58] LABS: Glucose, Whole Blood 188 mg/dL (60-115)
--- NOTE | 2025-03-19 14:08 | PM.EVENT ---
Event Note Date of Service: 03/20/25 Event Note: Patient is already seen and examined by icu team this morning, seen and examined again. Denies any complaints Assessment and plan and physical exam as per icu. Time Spent With Patient Time: Total time managing care of this patient today ____ minutes.
[2025-03-19 14:11] LABS: Alanine Aminotransferase 23 U/L (0-31); Albumin Level 3.8 g/dL (3.5-5.0); Alkaline Phosphatase 89 U/L (39-117); Anion Gap 16 (12-20); Aspartate Amino Transferase 86 U/L (5-31); Blood Urea Nitrogen 6 mg/dL (9-16); Calcium 8.4 mg/dL (8.4-10.2); Carbon Dioxide 16 mmol/L (22-29); Chloride 112 mmol/L (96-108); Creatinine Clr Calc Pharmacy 143.8; Estimated Glomerular Filt Rate > 60; Potassium 3.4 mmol/L (3.3-5.1); Sodium 141 mmol/L (135-145); Total Protein 6.0 g/dL (6.5-8.0)
[2025-03-19 16:19] LABS: Glucose, Whole Blood 238 mg/dL (60-115)
[2025-03-19 20:30] LABS: Glucose, Whole Blood 229 mg/dL (60-115)
[2025-03-20 03:32] VITALS: BP 117/53; PULSE 71; RESP 18; TEMP 36.2; O2SAT 100
[2025-03-20 07:47] LABS: ABG HCO3 18 mmol/L (22-26); ABG O2 % Saturation 99.0 %
[2025-03-20 07:51] VITALS: BP 141/73; PULSE 95; RESP 18; TEMP 36.8; O2SAT 99
[2025-03-20 07:59] LABS: Glucose, Whole Blood 232 mg/dL (60-115)
[2025-03-20] MEDS: Insulin Glargine,Hum.rec.anlog 100 UNIT/ML 10 ML VIAL 15 UNIT SUBCUT (08:06)
[2025-03-20 09:14] LABS: ABG Refer to POC result
[2025-03-20 11:26] LABS: Anion Gap 17 (12-20); Blood Urea Nitrogen 3 mg/dL (9-16); Calcium 8.6 mg/dL (8.4-10.2); Carbon Dioxide 19 mmol/L (22-29); Chloride 107 mmol/L (96-108); Creatinine Clr Calc Pharmacy 163.7; Estimated Glomerular Filt Rate > 60; Potassium 3.4 mmol/L (3.3-5.1); Sodium 140 mmol/L (135-145)
[2025-03-20 11:51] LABS: Glucose, Whole Blood 227 mg/dL (60-115)
--- NOTE | 2025-03-20 11:53 | PM.DS ---
DS: Providers Provider Date of Service: 03/20/25 Date of admission: 03/18/25 20:35 Date of discharge: 03/20/25 Primary care physician: Earl Clay [facility] Attending physician on discharge: Sandy Caldwell Discharging clinician: Sandy Caldwell DS: Diagnosis Discharge Diagnosis (1) Hyperglycemia: Status: Acute (2) Diabetic ketoacidosis: Status: Acute (3) Vitamin D deficiency: Status: Acute DS: Summary Hospital Course Hospital Course: HPI:30-year-old female with underlying history of obesity and autism who reportedly was seen in the emergency room here 2 days ago due to increased nausea and vomiting, diagnosed with new onset diabetes and discharged on metformin, PCP and drier unloader referral.? The patient has continued to feel sick, unable to tolerate any fluids or food.? The patient has had continuous retching and has not be able to tolerate anything by mouth, denied abdominal pain, urinary symptoms but family stated the patient is very sleepy and tired. The patient came back today with worsening symptoms, they are evaluation reveal a normotensive but tachycardic patient looking ill and weak, her workup revealed a white count 15.6, H and H of 15 and 45 respectively, platelets 5 of 5.? Venous blood gas pH 7.15, pCO2 17, PO2 68, bicarb 6.? Sodium 139, potassium 4.2, chloride 109, carbon dioxide 6, anion gap 28, BUN 9, creatinine 0.83, lactic acid 1.7, HCT 112, ALT 39, lipase 26, beta hydroxybutyrate acid 7.75.? Urinalysis shows proteinuria and glucosuria, no evidence of UTI.? Urine test negative.? EKG to my review shows sinus tachycardia rate of 106 beats per minute.? There is no ST elevations no ST depressions.? Possible T-wave flattening the anterior inferior leads.? No comparison available. ?The patient had been treated with 2 L of IV fluid, placed on an insulin drip. ?The patient will be admitted to ICU for further care. hospital course: Patient admitted for DKA: Newly diagnosed DKA during the ER visit 3 days ago, discharged home on metformin 500 mg b.i.d. not on insulin,Hemoglobin A1c 10.5. Yet to establish outpatient care for diabetes. Has a strong family history of diabetes mellitus: Admitted to ICU received IV hydration, IV insulin: Patient seems to be improved with above management and subsequently switched to Lantus 15 units q.day and sliding scale coverage. Patient bicarb is improving to 19, patient tolerating diet, pH is stable. Asymptomatic currently. plan:Lantus 15 units, sliding scale coverage, diabetic education given. Diabetic education given, monitor fingersticks at home, her mother at bedside knows about diabetic education also. Monitor BMP outpatient,Follow-up with the PCP and Endocrinology outpatient. Above management discussed with the patient and her mother in detail length, assessment and plan coordination time spent 40 minute, all question answered. Staff is present during conversation. Time Attestation Total time managing care of this patient today: 40 mintues. Discharge Coordination Time (in mins): 40 Quality: Safe Use of Opioids Does Pt have an Active Cancer Diagnosis on the Problem List?: No Quality: Stroke Does the patient have a stroke diagnosis?: No Physical Exam Vital Signs: Vital Signs: Last Vital Signs Temp 98.2 F 03/20/25 07:51 Pulse 95 03/20/25 07:51 Resp 18 03/20/25 07:51 BP 141/73 H 03/20/25 07:51 Pulse Ox 99 03/20/25 07:51 O2 Del Method Room Air 03/20/25 07:51 BMI result Body Mass Index 32.8 Appearance: Alert.? Oriented X3. cvs: rrr, [id number] . res: clear to auscultation ,no rhonchii or wheezing abd: no rebound or guarding ,nt, bs present. ext pulses present , no cyanosis. neuro: axo3 , nonfocal. DS: Data Data Completed and Pending Labs on day of discharge: Laboratory Results - last 24 hr 03/19/25 03/19/25 03/19/25 11:54 13:50 16:10 O2 Saturation ABG pH at Pt Temp ABG pCO2 at Pt Temp ABG pO2 at Pt Temp ABG HCO3 ABG Base Excess (Actual) Sodium 141 Potassium 3.4 Chloride 112 H Carbon Dioxide 16 L Anion Gap 16 BUN 6 L Creatinine 0.66 Estim Creat Clear Calc 143.8 Estimated GFR > 60 POC Glucose 188 H 238 H Random Glucose 259 H Calcium 8.4 Total Bilirubin 0.4 AST 86 H ALT 23 Alkaline Phosphatase 89 Total Protein 6.0 L Albumin 3.8 03/19/25 03/20/2503/20/25 20:21 07:44 07:54 O2 Saturation 99.0 ABG pH at Pt Temp 7.38 ABG pCO2 at Pt Temp 30 L ABG pO2 at Pt Temp 96 ABG HCO3 18 L ABG Base Excess (Actual) -5.0 Sodium Potassium Chloride Carbon Dioxide Anion Gap BUN Creatinine Estim Creat Clear Calc Estimated GFR POC Glucose 229 H 232 H Random Glucose Calcium Total Bilirubin AST ALT Alkaline Phosphatase Total Protein Albumin 03/20/25 03/20/25 10:58 11:35 O2 Saturation ABG pH at Pt Temp ABG pCO2 at Pt Temp ABG pO2 at Pt Temp ABG HCO3 ABG Base Excess (Actual) Sodium 140 Potassium 3.4 Chloride 107 Carbon Dioxide 19 L Anion Gap 17 BUN 3 L Creatinine 0.58 Estim Creat Clear Calc 163.7 Estimated GFR > 60 POC Glucose 227 H Random Glucose 231 H Calcium 8.6 Total Bilirubin AST ALT Alkaline Phosphatase Total Protein Albumin Additional Comments Additional comments: cxr: No active pulmonary disease. Discharge Plan Discharge Anticipated Discharge Date/Time: 03/20/25 11:45 Patient Disposition: Home, Self-Care Discharge Diagnosis: dka-possible dm type 1 Referrals: Earl Clay, [employer] BIOLOG[employer] SPECIALIST- [Primary Care Provider, Internal Medicine] - 1 Week Discharge Medications: New (DME) FreeStyle Lite Strips Strip Qty: 100 0RF Rx Instructions: Test four times a day or as directed. (DME) blood-glucose meter [FreeStyle Lite Meter] Kit Qty: 1 0RF Rx Instructions: As Directed alcohol swabs Pads, Medicated 1 pad TOPICAL QIDACHS Qty: 100 0RF Rx Instructions: Use four times a day or as directed. insulin lispro [Humalog KwikPen Insulin] 100 unit/mL insulin pen 0 sliding scale dose SUBCUT QIDACHS Qty: 15 0RF Rx Instructions: Blood Sugar: <150 - 0 units 151-200 - 2 units 201-250 - 4 units 251-300 - 6 units 301-350 - 8 units >350 - 10 units insulin glargine [Lantus Solostar U-100 Insulin] 100 unit/mL (3 mL) insulin pen 15 unit SUBCUT DAILY Qty: 15 0RF (DME) pen needle, diabetic 32 gauge x 1/4 needle Qty: 100 0RF Rx Instructions: Use four times a day or as directed. (DME) lancets [FreeStyle Lancets] 28 gauge misc Qty: 100 0RF Rx Instructions: Test four times a day or as directed. Continued escitalopram oxalate 10 mg tablet 10 mg PO DAILY Qty: 90 0RF L norgest/e.estradiol-e.estrad [Simpesse] 0.15 mg-30 mcg (84)/10 mcg (7) tablets,dose pack,3 month 1 tab PO DAILY melatonin 10 mg Tablet 10 mg PO BEDTIME clonidine HCl 0.1 mg tablet 0.2 mg PO BEDTIME metformin 500 mg tablet 500 mg PO BID 30 Days Qty: 60 0RF cholecalciferol (vitamin D3) [Vitamin D3] 50 mcg (2,000 unit) tablet 50 mcg PO DAILY Qty: 90 1RF omeprazole 20 mg capsule,delayed release(DR/EC) 20 mg PO DAILY Qty: 90 1RF Discharge Orders: Discharge Order (Routine); Ordered 03/20/25 Ordered By: Sandy Caldwell Diet: Advance to usual diet Activity on Discharge: As tolerated Stand Alone Forms: Patient Portal Discharge page Print Language: Chadian Care Plan Goals: As below. Health Concerns: As above. Plan of Treatment: Lantus 15 units, sliding scale coverage, diabetic education given. Follow up with the PCP and endocrinology outpatient. Assessment: As above. Discharge Date/Time: 03/20/25 12:19
--- NOTE | 2025-03-20 12:01 | MHC.CM.PN ---
Patient medically cleared for dc home w/ family support. Mother is at bedside. Private transport. RN aware.
== END 2025-03-20 12:19 | disposition home or self-care (01) | DRG 420 ==
LOC: HO.ED 20:09 → HO.EDOVER 21:19 → HO.ICU 21:34 → HO.S3 03-19 11:16
PROVIDERS: Physician Assistant; Physician Assistant Medical; Admitting Provider Physician Assistant Medical; Emergency Provider Emergency Medicine; PCP Nurse Practitioner Family; Visit Provider Internal Medicine
DX: E10.10 Type 1 diabetes mellitus with ketoacidosis without coma (principal); D75.838 Other thrombocytosis; E55.9 Vitamin D deficiency, unspecified; F84.0 Autistic disorder; E86.0 Dehydration; Z79.4 Long term (current) use of insulin; Z79.84 Long term (current) use of oral hypoglycemic drugs; Z79.899 Other long term (current) drug therapy
CPT/HCPCS: 36415; 71046; 80048; 80053; 81001; 81025; 82010; 82803; 82947; 83036; 83605; 83690; 83735; 84100; 85025; 93005; 99285; J1650; J2405; J2470

== ENCOUNTER → 2025-03-18 20:01 | Outpatient (BNV) | payer OTHER, SELFPAY | PROVIDERS: Admitting Provider Physician Assistant Medical; Emergency Provider Emergency Medicine; PCP Nurse Practitioner Family; Visit Provider Internal Medicine Cardiovascular Disease | DX: I51.7 Cardiomegaly (principal); R00.0 Tachycardia, unspecified | CPT/HCPCS: 93010 ==

== ENCOUNTER → 2025-03-18 20:33 | Outpatient (BNV) | payer OTHER, SELFPAY | PROVIDERS: Admitting Provider Physician Assistant Medical; Emergency Provider Emergency Medicine; PCP Nurse Practitioner Family; Visit Provider Radiology Diagnostic Radiology | DX: R53.1 Weakness (principal) | CPT/HCPCS: 71046 ==

== ENCOUNTER → 2025-03-18 20:35 | Outpatient (BNV) | payer OTHER, SELFPAY | PROVIDERS: Admitting Provider Physician Assistant Medical; Emergency Provider Emergency Medicine; PCP Nurse Practitioner Family; Visit Provider Internal Medicine Critical Care Medicine | DX: E11.10 Type 2 diabetes mellitus with ketoacidosis without coma (principal); E55.9 Vitamin D deficiency, unspecified | CPT/HCPCS: 99291; 99292 ==

== ENCOUNTER → 2025-03-18 20:35 | Outpatient (BNV) | payer OTHER, SELFPAY | PROVIDERS: Admitting Provider Physician Assistant Medical; Emergency Provider Emergency Medicine; PCP Nurse Practitioner Family; Visit Provider Internal Medicine | DX: R73.9 Hyperglycemia, unspecified (principal); E11.10 Type 2 diabetes mellitus with ketoacidosis without coma; E55.9 Vitamin D deficiency, unspecified | CPT/HCPCS: 99239; 99499 ==

== ENCOUNTER 2025-03-21 14:52 | Outpatient (AMB) | payer OTHER, SELFPAY ==
--- NOTE | 2025-03-21 14:55 | A.OFFVIS_ITS ---
Vital Signs 03/21/25 14:56 Height 5 ft 6 in Weight 208 lb 12.444 oz BMI 33.7 BP 108/74 Blood Pressure Location Lt brachial Position Sitting Pulse 105 H Pulse Source Pulse Oximeter Pulse Oximetry (%) 97 Oxygen Delivery Method Room Air Intake Visit Reasons: T2DM Intake Note: Patient present today for Type 2 Diabetes Mellitus Last Diabetic eye exam: About a year ago Last Podiatry Visit: Doesn't have one Random Glucose: 296 mg/dl HgA1C: 10.5% 03/18/25 Director Business Intelligence Required: No Accompanied by: Mother Allergies No Known Allergies Allergy (Verified 03/21/25 15:02) Medication List - Last Reconciled 03/21/25 by Rona Lopez MD alcohol swabs 1 pad topical QIDACHS blood sugar diagnostic (FreeStyle Lite Strips) Test four times a day or as directed. blood-glucose meter (FreeStyle Lite Meter kit) As Directed cholecalciferol (vitamin D3) (Vitamin D3) 50 mcg PO DAILY clonidine HCl 0.2 mg PO BEDTIME escitalopram oxalate 10 mg PO DAILY insulin glargine (Lantus Solostar U-100 Insulin) 15 units (0.15 mL) subcut DAILY insulin lispro (Humalog KwikPen (U-100) Insulin) Blood Sugar: <150 - 0 units 151-200 - 2 units 201-250 - 4 units 251-300 - 6 units 301-350 - 8 units >350 - 10 units L norgest/e.estradiol-e.estrad 0.15 mg-30 mcg (84)/10 mcg (7) (Simpesse) 1 tab PO DAILY lancets (FreeStyle Lancets) Test four times a day or as directed. melatonin 10 mg PO BEDTIME metformin 500 mg PO BID 30 days omeprazole 20 mg PO DAILY pen needle, diabetic Use four times a day or as directed. HPI Comments Details: 30-year-old female coming in today for initial evaluation of type 2 diabetes mellitus. Here today with mother Krysta. History of diabetes Diagnosed 03/18/25, new onset diabetes mellitus Found to be in DKA Prior therapy: none Current regimen: metformin 500 mg BID on hold insulin lantus 15 units daily AM insulin lispro <150 - 0 units 151-200 - 2 units 201-250 - 4 units 251-300 - 6 units 301-350 - 8 units >350 - 10 units No nausea or vomiting currently, no abd pain. Denies any symptoms of hyperglycemia including polyphagia, polyuria, polydipsia. Denies any hypoglycemic symptoms. Random Glucose: 296 mg/dl lunch at 11 30 pm : macaroni HgA1C: 10.5% 03/18/25 SMBG's Prescribed meter at discharge from the hospital Doesnt have it today Running in 200s and 300s Vaccines: uptodate with Covid and flu vaccines Complications Eye exam: Last eye exam was less than a year ago . ophthalmology : [facility] Neuropathy: none Kidney disease: none Macrovascular complications: No history of macrovascular complications. Statin:none ESTRELLITA/ARB: none Exercise: none Diet control: BF : sometimes skips Lunch at noon : macaroni cheese Supper at 5 pm : meat with a side like corn or potato snack at night: ice cream, now doing sugar free , chips lots of sodas before , now stopped Current medication insulin lispro [Humalog KwikPen Insulin] 100 unit/mL insulin pen 0 sliding scale dose SUBCUT QIDACHS Qty: 15 0RF Rx Instructions: Blood Sugar: <150 - 0 units 151-200 - 2 units 201-250 - 4 units 251-300 - 6 units 301-350 - 8 units >350 - 10 units insulin glargine [Lantus Solostar U-100 Insulin] 100 unit/mL (3 mL) insulin pen 15 unit SUBCUT DAILY Qty: 15 0RF Physical exam General: sitting comfortably in no acute distress HEENT: normocephalic/atraumatic Neck: supple, symmetrical, no thyromegaly , n Cardiac: normal heart sounds Pulm: normal breath sounds B/L, no added breath sounds Abd: not distended, no tenderness Extremities: no edema, no signs of myxedema Neuro: AAO x3, Speech: normal, no facial droop, moving all 4 extremities Skin: no rash Foot exam: intact sensation to monofilament, intact pulses, intact vibration Laboratory Tests 03/18/25 03/19/25 03/19/25 18:28 06:07 13:50 Hgb 11.9 L D Hct 37.0 Plt Count 316 D Sodium Potassium Creatinine Estimated GFR Glucose (Clinic) POC Glucose Hemoglobin A1c % 10.5 H AST 86 H ALT 23 Albumin 3.8 03/20/25 03/20/25 03/21/25 10:58 11:35 15:05 Hgb Hct Plt Count Sodium 140 Potassium 3.4 Creatinine 0.58 Estimated GFR > 60 Glucose (Clinic) 296 H POC Glucose 227 H Hemoglobin A1c % AST ALT Albumin PFSH Medical History Autistic disorder Surgical History No pertinent past surgical history Family History Father No problems noted. Mother No problems noted. Social History Household Members: Family Housing: House Do you presently have visiting nurse or other home services: No Alcohol intake: never Patient Tobacco Use Status: Never used Tobacco e-Cigarette/Vaping Use: Never Used service: No Current occupational status: unemployed Cognitive needs: No Hearing needs: No Vision needs: Yes Physical Exam Vital Signs: Last Vital Signs Pulse 105 H 03/21/25 14:56 BP 108/74 03/21/25 14:56 Pulse Ox 97 03/21/25 14:56 Oxygen Delivery Method Room Air 03/21/25 14:56 BMI result Body Mass Index 33.7 Results Reviewed Results Reviewed: Laboratory Last Values Glucose (Clinic) 296 mg/dL (60-115) H 03/21/25 15:05 Assessment & Plan Assessment & Plan (1) Diabetes mellitus: Code(s): E11.9 - Type 2 diabetes mellitus without complications Category: Medical Qualifiers: Diabetes mellitus type: type 2 Diabetes mellitus crts insulin use: with [facility] use Diabetes mellitus complication status: with hyperglycemia Qualified Code(s): E11.65 - Type 2 diabetes mellitus with hyperglycemia; Z79.4 - curtain cutter (current) use of insulin Plan: 30-year-old female with past medical history significant for autism who is coming in today to establish care for diabetes mellitus. This is new onset. She has a strong family history of type 2 diabetes mellitus. Given her weight, men strong family history most likely patient has type 2 diabetes mellitus, however given her age, we do have to suspect whether she has type 1 versus [place] versus [place]. I will check her C-peptide and antibody levels. Blood sugars have been running in the 200s to 300s. Hospitalized for DKA in March 2025 that is her diabetes was diagnosed. At this time I will up titrate her insulin a bit. But most importantly it would be good for her to go on a CGM sensor. We will schedule with the educator and our reconnaissance man. Did hypoglycemia education Discussed importance of control of hyperglycemia and complications of hyperglycemia. Plan: -increase Lantus to 17 units daily -increase sliding scale as mentioned below insulin lispro <100 - 0 units 101 - 150- 2 units 151-200 - 4 units 201-250 - 6 units 251-300 - 8 units 301-350 - 10 units >350 - 10 units -advised 30 minutes of exercise 5 days a week -annual eye visits advised -ordered insulin, islet cell, alis antibodies, C-peptide levels -ordered CMP, lipid panel, urine microalbumin -foot education done -referral placed for reconnaissance man -referral placed for educator, plan would be to start CGM sensor (2) Diabetic ketoacidosis: Code(s): E11.10 - Type 2 diabetes mellitus with ketoacidosis without coma Category: Medical Qualifiers: Diabetes mellitus type: other specified (including CAROLINE) Diabetes mellitus complication detail: without coma Qualified Code(s): E13.10 - Other specified diabetes mellitus with ketoacidosis without coma Plan: See above Plan I spent 60 minutes in reviewing the record, seeing the patient and documenting in the medical record. Orders: Orders Microalbumin, Random (w Creat) Today E11.10 - Type 2 diabetes mellitus with ketoacidosis without coma, E11.9 - Type 2 diabetes mellitus without complications Thyroid Stimulating Hormone Today E11.10 - Type 2 diabetes mellitus with ketoacidosis without coma, E11.9 - Type 2 diabetes mellitus without comp lications Islet Cell Antibody Scrn/Titer Today E11.10 - Type 2 diabetes mellitus with ketoacidosis without coma, E11.9 - Type 2 diabetes mellitus without complications Glutamic acid decarboxylase Ab Today E11.10 - Type 2 diabetes mellitus with ketoacidosis without coma, E11.9 - Type 2 diabetes mellitus without complications Insulinoma associated 2 aatb Today E11.10 - Type 2 diabetes mellitus with ketoacidosis without coma, E11.9 - Type 2 diabetes mellitus without complications Lipid Panel Today E11.10 - Type 2 diabetes mellitus with ketoacidosis without coma, E11.9 - Type 2 diabetes mellitus without complications Vitamin B12 Today E11.10 - Type 2 diabetes mellitus with ketoacidosis without coma, E11.9 - Type 2 diabetes mellitus without complications C Peptide Today E11.10 - Type 2 diabetes mellitus with ketoacidosis without co ma, E11.9 - Type 2 diabetes mellitus without complications Comprehensive Met. Panel Today E11.10 - Type 2 diabetes mellitus with ketoacidosis without coma, E11.9 - Type 2 diabetes mellitus without complications Referrals Pharmacist In Charge Nutrition Referral E11.9 - Type 2 diabetes mellitus without complications Diabetes Education Referral E11.10 - Type 2 diabetes mellitus with ketoacidosis without coma, E11.9 - Type 2 diabetes mellitus without complications Medications: New blood-glucose sensor (FreeStyle Tiffanie 3 Plus Sensor device) As directed every 15 days 6 ea 3RF E11.10 - Type 2 diabetes mellitus with ketoacidosis without coma, E11.9 - Type 2 diabetes mellitus without complications, R73.9 - Hyperglycemia, unspecified Changed From insulin lispro (Humalog KwikPen (U-100) Insulin) Blood Sugar: <150 - 0 units 151-200 - 2 units 201-250 - 4 units 251-300 - 6 units 301-350 - 8 units >350 - 10 units 15 mL 0RF To insulin lispro (Humalog KwikPen (U-100) Insulin) subcutaneously 4 times a day before meal/bed; Blood Sugar: <100 - 0 units 100- 150-2 units 151-200 - 4 units 201-250 - 6 units 251-300 - 8 units 301-350 - 10 units >350 - 10 units 15 mL 5RF From insulin glargine (Lantus Solostar U-100 Insulin) 15 units (0.15 mL) subcut DAILY 15 mL 0RF E11.9 - Type 2 diabetes mellitus without complications To insulin glargine (Lantus Solostar U-100 Insulin) 17 units (0.17 mL) subcut DAILY 15 mL 5RF E11.9 - Type 2 diabetes mellitus without complications Refilled lancets (FreeStyle Lancets) Test four times a day or as directed. 100 ea 4RF E11.10 - Type 2 diabetes mellitus with ketoacidosis without coma, E11.9 - Type 2 diabetes mellitus without complications blood sugar diagnostic (FreeStyle Lite Strips) Test four times a day or as directed. 100 ea 4RF E11.10 - Type 2 diabetes mellitus with ketoacidosis without coma, E11.9 - Type 2 diabetes mellitus without complications pen needle, diabetic Use four times a day or as directed. 100 ea 5RF E11.10 - Type 2 diabetes mellitus with ketoacidosis without coma, E11.9 - Type 2 diabetes mellitus without complications Patient Instructions: Do fasting blood work and urine test See the educator for sensor start see the reconnaissance man Eye exams annually Walk 30 mins 5 days a week Rule of 15 Treatment for Hypoglycemia (Low blood sugar) If your blood glucose is low (70 and below)*, follow the steps below to treat: Eat or drink something from the list below equal to 15 grams of carbohydrate (carb). Rest for 15 minutes Re-check your blood glucose. If it is still low, (below 70), repeat step 1 above. ? If your next meal is more than an hour away, you will need to eat one carbohydrate choice as a snack to keep your blood glucose from going low again. ?If you can't figure out why you have low blood glucose, call your healthcare provider, as your medicine may need to be adjusted. ?Always carry something with you to treat an insulin reaction. Use food from the list below. ? Foods equal to One Carbohydrate Choice (15 grams of carbohydrate): 3 Glucose ?tablets or 4 Dextrose tablets 4 ounces of fruit juice 5-6 ounces (about 1/2 can) of regular soda such as Coke or Pepsi ? 7-8 gummy or regular Life Savers ? 1 Tbsp. of sugar or jelly NOTE: If your blood sugar is less than 50, double the portion above for a total of 30 gm. ?Carbohydrate. ? Follow meal plan of 45-60 g of consistent carbohydrates at 3 meals each day and 15 g of carbohydrate at 1-2 snacks each day. Check your feet daily looking for any signs of infection, drainage, redness, ulceration and seek medical attention if this occurs. Break in shoes gradually and do not wear open-toed shoes or walk stocking footed or barefooted. increase insulin lantus 17 units daily AM insulin lispro <100 - 0 units 101 - 150- 2 units 151-200 - 4 units 201-250 - 6 units 251-300 - 8 units 301-350 - 10 units >350 - 10 units Coding Level of Care Code New Pt Level 5 (28636) Complex EM visit Add On G2211 Diagnoses Type 2 diabetes mellitus with hyperglycemia, with long-term current use of insulin E11.65; Z79.4 Diabetes mellitus type: type 2 Diabetes mellitus [facility]: with [facility] Diabetes mellitus complication status: with hyperglycemia Diabetic ketoacidosis without coma associated with other specified diabetes mellitus E13.10 Diabetes mellitus type: other specified (including CAROLINE) Diabetes mellitus complication detail: without coma Time Spent (min) 60
[2025-03-21 14:56] VITALS: BP 108/74; PULSE 105; O2SAT 97; BMI 33.7
[2025-03-21 15:09] LABS: Glucose, Whole Blood 296 mg/dL (60-115)
== END 2025-03-21 16:10 | disposition home or self-care (01) ==
LOC: HO.ENCR 14:53
PROVIDERS: PCP Nurse Practitioner Family; Visit Provider Student in an Organized Health Care Education/Training Program
DX: E11.65 Type 2 diabetes mellitus with hyperglycemia (principal); Z79.4 Long term (current) use of insulin
CPT/HCPCS: 99205; G2211

== ENCOUNTER → 2025-03-21 14:52 | Outpatient (BNVA) | payer OTHER, SELFPAY | PROVIDERS: PCP Nurse Practitioner Family; Visit Provider Student in an Organized Health Care Education/Training Program | DX: E11.65 Type 2 diabetes mellitus with hyperglycemia (principal); Z79.4 Long term (current) use of insulin | CPT/HCPCS: 82947; 99202 ==

== ENCOUNTER 2025-03-28 08:44 | Outpatient (REF) | payer OTHER, SELFPAY ==
[2025-03-28 09:48] LABS: MANUAL DIFF FLAG NO
[2025-03-28 09:54] LABS: Hematocrit 38.3 % (37.0-47.0); Hemoglobin 12.7 g/dl (12.0-16.0); Imm Gran Abs Auto 0.04 X10*3/uL (0.00-0.03); Imm Gran Pct Auto 0.4 % (0.0-0.4); Lymphocytes Absolute Auto 4.1 X10*3/uL (1.2-4.9); Mean Corpuscular HGB Conc 33.2 g/dl (31.0-35.0); Mean Corpuscular Hemoglobin 27.4 pg (27.0-33.0); Mean Corpuscular Volume 82.7 fL (80.0-98.0); NRBC Abs Auto 0.000 X10*3/uL (0.0-0.012); NRBC Pct Auto 0.0 /100WBC (0.0-0.2); Platelet Count 323 X10*3/uL (160-400); Red Blood Count 4.63 X10*6/uL (4.20-5.50); White Blood Count 9.1 X10*3/uL (4.8-10.8)
[2025-03-28 10:32] LABS: Alanine Aminotransferase 41 U/L (0-31); Albumin Level 4.1 g/dL (3.5-5.0); Alkaline Phosphatase 87 U/L (39-117); Anion Gap 15 (12-20); Aspartate Amino Transferase 58 U/L (5-31); Blood Urea Nitrogen 7 mg/dL (9-16); Calcium 8.7 mg/dL (8.4-10.2); Carbon Dioxide 29 mmol/L (22-29); Chloride 99 mmol/L (96-108); Cholesterol 235 mg/dL (<200); Estimated Glomerular Filt Rate > 60; HDL Cholesterol 36 mg/dL (>40); Potassium 3.0 mmol/L (3.3-5.1); Sodium 140 mmol/L (135-145); Total Protein 6.4 g/dL (6.5-8.0); Triglycerides 354 mg/dL (<150)
[2025-03-28 10:40] LABS: Thyroid Stimulating Hormone 1.29 uIU/mL (0.32-4.0)
[2025-03-28 10:50] LABS: Vitamin B12 397 pg/mL (200-900)
[2025-03-28 13:29] LABS: Appearance Urine Clear; Glucose Urine UA >=1000 mg/dL (Negative); PH 6.5 (5.0-9.0); Specific Gravity - Urine >= 1.030 (1.005-1.025); UMIC TRIGGER UACC YES
[2025-03-28 14:31] LABS: Microalbum/Creatinine Ratio Ur 11.8 ug/mg cr (<30)
[2025-04-06 05:14] LABS: Insulinoma associated 2 aatb <5.4 U/mL (<5.4)
== END 2025-03-28 08:45 | disposition home or self-care (01) ==
LOC: HO.10HDL 08:44
PROVIDERS: Nurse Practitioner Family; Visit Provider Student in an Organized Health Care Education/Training Program
DX: Z00.00 Encounter for general adult medical examination without abnormal findings (principal); E55.9 Vitamin D deficiency, unspecified; E11.10 Type 2 diabetes mellitus with ketoacidosis without coma
CPT/HCPCS: 36415; 80053; 80061; 81001; 82043; 82306; 82570; 82607; 84443; 84681; 85025; 86341

== ENCOUNTER 2025-04-18 10:36 | Outpatient (REF) | payer OTHER, SELFPAY ==
[2025-04-18 11:18] LABS: Alanine Aminotransferase 35 U/L (0-31); Albumin Level 3.9 g/dL (3.5-5.0); Alkaline Phosphatase 106 U/L (39-117); Anion Gap 14 (12-20); Aspartate Amino Transferase 63 U/L (5-31); Blood Urea Nitrogen 9 mg/dL (9-16); Calcium 8.9 mg/dL (8.4-10.2); Carbon Dioxide 23 mmol/L (22-29); Chloride 108 mmol/L (96-108); Cholesterol 211 mg/dL (<200); Estimated Glomerular Filt Rate > 60; HDL Cholesterol 31 mg/dL (>40); Potassium 4.4 mmol/L (3.3-5.1); Sodium 141 mmol/L (135-145); Total Protein 6.6 g/dL (6.5-8.0); Triglycerides 259 mg/dL (<150)
[2025-04-18 11:51] LABS: Appearance Urine Clear; Glucose Urine UA 500 mg/dL (Negative); PH 5.5 (5.0-9.0); Specific Gravity - Urine >= 1.030 (1.005-1.025); UMIC TRIGGER UACC YES
[2025-04-18 12:04] LABS: UACC Culture Trigger YES
== END 2025-04-18 10:37 | disposition home or self-care (01) ==
LOC: HO.LAB 10:36
PROVIDERS: Internal Medicine; Absent Provider Student in an Organized Health Care Education/Training Program; PCP Nurse Practitioner Family; Visit Provider Nurse Practitioner Family
DX: Z00.00 Encounter for general adult medical examination without abnormal findings (principal); E11.10 Type 2 diabetes mellitus with ketoacidosis without coma
CPT/HCPCS: 36415; 80053; 80061; 81001; 87086

== ENCOUNTER 2025-04-19 12:16 | Outpatient (AMB) | payer OTHER, SELFPAY ==
[2025-04-19 12:28] VITALS: BP 120/82; PULSE 91; O2SAT 97
--- NOTE | 2025-04-19 12:28 | A.OFFVIS_ITS ---
Vital Signs 04/19/25 12:28 Height 5 ft 6 in BP 120/82 Blood Pressure Location Lt brachial Position Sitting Pulse 91 Pulse Source Pulse Oximeter Pulse Oximetry (%) 97 Oxygen Delivery Method Room Air Intake Visit Reasons: T2DM Intake Note: Patient present today for Type 2 Diabetes Mellitus Last Diabetic eye exam: About a year ago. Last Podiatry Visit: Doesn't have one. Random Glucose: 167 mg/dl HgA1C: 10.5% 03/18/25 Shuttle Final Inspector Required: No Accompanied by: Mother Allergies No Known Allergies Allergy (Verified 04/19/25 12:37) Medication List - Last Reconciled 04/19/25 by Rona Lopez MD alcohol swabs 1 pad topical QIDACHS blood sugar diagnostic (FreeStyle Lite Strips) Test four times a day or as directed. blood-glucose meter (FreeStyle Lite Meter kit) As Directed blood-glucose sensor (FreeStyle Tiffanie 3 Plus Sensor device) As directed every 15 days cholecalciferol (vitamin D3) (Vitamin D3) 50 mcg PO DAILY clonidine HCl 0.2 mg PO BEDTIME escitalopram oxalate 10 mg PO DAILY insulin glargine (Lantus Solostar U-100 Insulin) 17 units (0.17 mL) subcut DAILY insulin lispro (Humalog KwikPen (U-100) Insulin) subcutaneously 4 times a day before meal/bed; Blood Sugar: <100 - 0 units 100- 150-2 units 151-200 - 4 units 201-250 - 6 units 251-300 - 8 units 301-350 - 10 units >350 - 10 units L norgest/e.estradiol-e.estrad 0.15 mg-30 mcg (84)/10 mcg (7) (Simpesse) 1 tab PO DAILY lancets (FreeStyle Lancets) Test four times a day or as directed. melatonin 10 mg PO BEDTIME metformin ER (Glucophage XR) 500 mg PO BID omeprazole 20 mg PO DAILY pen needle, diabetic Use four times a day or as directed. potassium chloride ER (Klor-Con M) 20 mEq PO BID HPI Comments Details: 30-year-old female coming in today for follow up of type 2 diabetes mellitus. Here today with mother Krysta. History of diabetes Diagnosed 03/18/25, new onset diabetes mellitus Found to be in DKA Labs from March 2025 showed C-peptide is within normal range, undetectable hector , islet cell, insulin antibody Prior therapy: none Current regimen: metformin 500 mg BID on hold insulin lantus 20 units daily AM insulin lispro <100 - 0 units 101 - 150- 2 units 151-200 - 4 units 201-250 - 6 units 251-300 - 8 units 301-350 - 10 units >350 - 10 units No nausea or vomiting currently, no abd pain. Denies any symptoms of hyperglycemia including polyphagia, polyuria, polydipsia. Denies any hypoglycemic symptoms. Random Glucose: 167 mg/dl HgA1C: 10.5% 03/18/25 SMBG's Glucometer data reviewed, blood sugars in the 160s to 200s for fasting. Post meals 200s to 300s. Vaccines: uptodate with Covid and flu vaccines Complications Eye exam: Last eye exam was less than a year ago . ophthalmology : [place] [facility] Neuropathy: none Kidney disease: none, EGFR> April, normal urine microalbumin/creatinine ratio March 2025 Macrovascular complications: No history of macrovascular complications. Statin:none , LDL 129 mg/dL from March 2025 ESTRELLITA/ARB: none Exercise: 10 mins 4 days a week Diet control: BF : sometimes skips Lunch at noon : macaroni cheese Supper at 5 pm : meat with a side like corn or potato snack at night: ice cream, now doing sugar free , chips lots of sodas before , now stopped Physical exam General: sitting comfortably in no acute distress HEENT: normocephalic/atraumatic Neck: supple, symmetrical, no thyromegaly , n Cardiac: normal heart sounds Pulm: normal breath sounds B/L, no added breath sounds Abd: not distended, no tenderness Extremities: no edema, no signs of myxedema Neuro: AAO x3, Speech: normal, no facial droop, moving all 4 extremities Skin: no rash Foot exam: 03/21/2025 intact sensation to monofilament, intact pulses, intact vibration Laboratory Tests 03/18/25 03/19/25 03/19/25 18:28 06:07 13:50 Hgb 11.9 L D Hct 37.0 Plt Count 316 D Sodium Potassium Creatinine Estimated GFR Glucose (Clinic) POC Glucose Hemoglobin A1c % 10.5 H AST 86 H ALT 23 Albumin 3.8 03/20/25 03/20/25 03/21/25 10:58 11:35 15:05 Hgb Hct Plt Count Sodium 140 Potassium 3.4 Creatinine 0.58 Estimated GFR > 60 Glucose (Clinic) 296 H POC Glucose 227 H Hemoglobin A1c % AST ALT Albumin Laboratory Tests 03/28/25 04/18/25 08:50 11:00 Hgb 12.7 Hct 38.3 Plt Count 323 Sodium 141 Creatinine 0.66 Estimated GFR > 60 Random Glucose 191 H Fasting Glucose 351 H* C-Peptide 2.01 AST 63 H ALT 35 H Triglycerides 354 H 259 H Cholesterol 235 H 211 H LDL Cholesterol, Calc 129 H 129 H HDL Cholesterol 36 L 31 L Vitamin B12 397 TSH 1.34 Urine Creatinine 184.89 Urine Microalbumin 22.0 Microalb/Creat Ratio 11.8 Anti-IA2 Antibody <5.4 HECTOR Antibody <5 PFSH Medical History (Updated 04/19/25 @ 12:53 by Rona Lopez MD) Dyslipidemia associated with type 2 diabetes mellitus Vitamin D deficiency Diabetes mellitus Autistic disorder Surgical History No pertinent past surgical history Family History Father No problems noted. Mother No problems noted. Social History Household Members: Family Housing: House Do you presently have visiting nurse or other home services: No Alcohol intake: never Patient Tobacco Use Status: Never used Tobacco e-Cigarette/Vaping Use: Never Used service: No Current occupational status: unemployed Cognitive needs: No Hearing needs: No Vision needs: Yes Physical Exam Vital Signs: Last Vital Signs Pulse 91 04/19/25 12:28 BP 120/82 04/19/25 12:28 Pulse Ox 97 04/19/25 12:28 Oxygen Delivery Method Room Air 04/19/25 12:28 Assessment & Plan Assessment & Plan (1) Diabetes mellitus: Code(s): E11.9 - Type 2 diabetes mellitus without complications Category: Medical Qualifiers: Diabetes mellitus type: type 2 Diabetes mellitus fdc insulin use: with rat exterminator use Diabetes mellitus complication status: with hyperglycemia Qualified Code(s): E11.65 - Type 2 diabetes mellitus with hyperglycemia; Z79.4 - shelter (current) use of insulin Plan: 30-year-old female with past medical history significant for autism who is coming in today for follow up of type 2 diabetes mellitus. Diagnosed March 2025. She has a strong family history of type 2 diabetes mellitus. Given her weight, men strong family history consistent with type 2 diabetes mellitus, plus detectable C-peptide and negative antibody levels. Blood sugars have been running in the 200s to 300s. Hospitalized for DKA in March 2025 that is her diabetes was diagnosed. At this time I will up titrate her insulin a bit. But most importantly it would be good for her to go on a CGM sensor. She missed her last diabetes education appointment. I stressed to them importance of going to this. Did hypoglycemia education Discussed importance of control of hyperglycemia and complications of hyperglycemia. Plan: -restart metformin prescribed extended release 500 mg b.i.d., start with 1 pill a day for a week and then go up to do pills a day. -increase Lantus to 22 units daily and if blood sugars remain greater than 140 mg/dL fasting, can increase to 24 units -increase sliding scale as mentioned below insulin lispro <100 - 2 units 101 - 150- 4 units 151-200 - 6 units 201-250 - 8 units 251-300 - 8 units 301-350 - 10 units >350 - 10 units -advised 30 minutes of exercise 5 days a week -annual eye visits advised -referral placed for optical glass inspector , pending appointment -referral placed for educator, plan would be to start CGM sensor, no showed to last appointment (2) Dyslipidemia associated with type 2 diabetes mellitus: Code(s): E11.69 - Type 2 diabetes mellitus with other specified complication; E78.5 - Hyperlipidemia, unspecified Category: Medical Plan: LDL at 129 mg/dL from April 2025. Triglycerides and cholesterol levels also elevated. Given her age, plus LDL is less than 160 mg/dL, at this time I am holding off on starting a statin. We will keep an eye on her lipids. At this time advised in 10 is lifestyle modification. She has started walking but not too much. Advised 30 minutes 5 days a week. Advised about avoiding trans saturated in [place] saturated fats, avoiding beef and pork and sticking with lean meats. Plan I spent 30 minutes in reviewing the record, seeing the patient and documenting in the medical record. Medications: New metformin ER (Glucophage XR) 500 mg PO BID 60 tabs 5RF blood-glucose,paint booth operator,cont (FreeStyle Tiffanie 3 [place]) As directed 1 ea 0RF E11.65 - Type 2 diabetes mellitus with hyperglycemia, Z79.4 - shelter (current) use of insulin Changed From insulin glargine (Lantus Solostar U-100 Insulin) 17 units (0.17 mL) subcut DAILY 15 mL 5RF E11.9 - Type 2 diabetes mellitus without complications To insulin glargine (Lantus Solostar U-100 Insulin) 24 units (0.24 mL) subcut DAILY 15 mL 5RF E11.9 - Type 2 diabetes mellitus without complications From insulin lispro (Humalog KwikPen (U-100) Insulin) subcutaneously 4 times a day before meal/bed; Blood Sugar: <100 - 0 units 100- 150-2 units 151-200 - 4 units 201-250 - 6 units 251-300 - 8 units 301-350 - 10 units >350 - 10 units 15 mL 5RF To insulin lispro (Humalog KwikPen (U-100) Insulin) sliding scale <100 - 2 units 101 - 150- 4 units 151-200 - 6 units 201-250 - 8 units 251-300 - 8 units 301-350 - 10 units >350 - 10 units Upto 30 units max in a day 15 mL 5RF Discontinued metformin Discontinued Reason: Doctor's Order 500 mg PO BID 30 days 60 tabs 0RF Patient Instructions: restart metformin prescribed extended release 500 mg twice daily, start with 1 pill a day for a week and then go up to do pills a day. increase Lantus to 22 units daily and if after doing this morning sugars fasting remain greater than 140 mg/dl , increase to 24 units daily increase sliding scale as mentioned below insulin lispro <100 - 2 units 101 - 150- 4 units 151-200 - 6 units 201-250 - 8 units 251-300 - 8 units 301-350 - 10 units >350 - 10 units See the quality rn for sensor start Exercise 30 mins 5 days a week Coding Level of Care Code Est Pt Level 4 (87501) Complex EM visit Add On G2211 Diagnoses Type 2 diabetes mellitus with hyperglycemia, with long-term current use of insulin E11.65; Z79.4 Diabetes mellitus type: type 2 Diabetes mellitus fdc insulin use: with fdc use Diabetes mellitus complication status: with hyperglycemia Dyslipidemia associated with type 2 diabetes mellitus E11.69; E78.5 Time Spent (min) 30
[2025-04-19 12:38] LABS: Glucose, Whole Blood 167 mg/dL (60-115)
== END 2025-04-19 12:51 | disposition home or self-care (01) ==
LOC: HO.ENCR 12:17
PROVIDERS: PCP Nurse Practitioner Family; Visit Provider Student in an Organized Health Care Education/Training Program
DX: E11.65 Type 2 diabetes mellitus with hyperglycemia (principal); Z79.4 Long term (current) use of insulin; E11.69 Type 2 diabetes mellitus with other specified complication; E78.5 Hyperlipidemia, unspecified
CPT/HCPCS: 99214

== ENCOUNTER → 2025-04-19 12:16 | Outpatient (BNVA) | payer OTHER, SELFPAY | PROVIDERS: PCP Nurse Practitioner Family; Visit Provider Student in an Organized Health Care Education/Training Program | DX: E11.65 Type 2 diabetes mellitus with hyperglycemia (principal); Z79.4 Long term (current) use of insulin; E78.5 Hyperlipidemia, unspecified | CPT/HCPCS: 82947; 99212 ==

== ENCOUNTER 2025-05-17 13:01 | Outpatient (AMB) | payer OTHER, SELFPAY ==
[2025-05-17 13:07] VITALS: BP 102/70; PULSE 81; O2SAT 97; BMI 34.1
--- NOTE | 2025-05-17 13:07 | A.OFFVIS_ITS ---
Vital Signs 3 05/17/25 13:07 Height 5 ft 6 in Weight 211 lb 3.245 oz BMI 34.1 BP 102/70 Blood Pressure Location Lt brachial Position Sitting Pulse 81 Pulse Source Pulse Oximeter Pulse Oximetry (%) 97 Oxygen Delivery Method Room Air Intake Visit Reasons: T2DM Intake Note: Patient present today for Type 2 Diabetes Mellitus Last Diabetic eye exam: 2023 Last Podiatry Visit: Doesn't have one Random Glucose: 79 mg/dl HgA1C: 10.5% 03/18/25 Director Of Construction Required: No Accompanied by: Mother Allergies No Known Allergies Allergy (Verified 05/17/25 13:14) Medication List - Last Reconciled 05/17/25 by Rona Lopez MD alcohol swabs 1 pad topical QIDACHS blood sugar diagnostic (FreeStyle Lite Strips) Test four times a day or as directed. blood-glucose meter (FreeStyle Lite Meter kit) As Directed blood-glucose sensor (FreeStyle Tiffanie 3 Plus Sensor device) As directed every 15 days blood-glucose,charge master analyst,cont (FreeStyle Tiffanie 3 [place]) As directed cholecalciferol (vitamin D3) (Vitamin D3) 50 mcg PO DAILY clonidine HCl 0.2 mg PO BEDTIME escitalopram oxalate 10 mg PO DAILY insulin glargine (Lantus Solostar U-100 Insulin) 24 units (0.24 mL) subcut DAILY insulin lispro (Humalog KwikPen (U-100) Insulin) sliding scale <100 - 2 units 101 - 150- 4 units 151-200 - 6 units 201-250 - 8 units 251-300 - 8 units 301-350 - 10 units >350 - 10 units Upto 30 units max in a day L norgest/e.estradiol-e.estrad 0.15 mg-30 mcg (84)/10 mcg (7) (Simpesse) 1 tab PO DAILY lancets (FreeStyle Lancets) Test four times a day or as directed. melatonin 10 mg PO BEDTIME metformin ER (Glucophage XR) 500 mg PO BID omeprazole 20 mg PO DAILY pen needle, diabetic Use four times a day or as directed. potassium chloride ER (Klor-Con M) 20 mEq PO BID HPI Comments Details: 30-year-old female coming in today for follow up of type 2 diabetes mellitus. Here today with mother Krysta. Last seen 04/19/2025 History of diabetes Diagnosed 03/18/25, new onset diabetes mellitus Found to be in DKA Labs from March 2025 showed C-peptide is within normal range, undetectable hector , islet cell, insulin antibody Prior therapy: none Current regimen: metformin ER 500 mg BID increase Lantus 24 units HS insulin lispro <100 - 2 units 101 - 150- 4 units 151-200 - 6 units 201-250 - 8 units 251-300 - 8 units 301-350 - 10 units >350 - 10 units No nausea or vomiting currently, no abd pain. Denies any symptoms of hyperglycemia including polyphagia, polyuria, polydipsia. Denies any hypoglycemic symptoms. Random Glucose: 79 mg/dl HgA1C: 10.5% 03/18/25 SMBG's Vaccines: uptodate with Covid and flu vaccines Complications Eye exam: Last eye exam was in 2024 . ophthalmology : [place] [facility] Neuropathy: none Kidney disease: none, EGFR> April, normal urine microalbumin/creatinine ratio March 2025 Macrovascular complications: No history of macrovascular complications. Statin:none , LDL 129 mg/dL from March 2025 ESTRELLITA/ARB: none Exercise: 10 mins 4 days a week Diet control: BF : sometimes skips Lunch at noon : macaroni cheese Supper at 5 pm : meat with a side like corn or potato snack at night: ice cream, now doing sugar free , chips lots of sodas before , now stopped Pending chief accountant appointment 05/18/2025 Physical exam General: sitting comfortably in no acute distress HEENT: normocephalic/atraumatic Neck: supple, symmetrical, no thyromegaly , n Cardiac: normal heart sounds Pulm: normal breath sounds B/L, no added breath sounds Abd: not distended, no tenderness Extremities: no edema, no signs of myxedema Neuro: AAO x3, Speech: normal, no facial droop, moving all 4 extremities Skin: no rash Foot exam: 03/21/2025 intact sensation to monofilament, intact pulses, intact vibration Laboratory Tests 03/18/25 03/19/25 03/19/25 18:28 06:07 13:50 Hgb 11.9 L D Hct 37.0 Plt Count 316 D Sodium Potassium Creatinine Estimated GFR Glucose (Clinic) POC Glucose Hemoglobin A1c % 10.5 H AST 86 H ALT 23 Albumin 3.8 03/20/25 03/20/25 03/21/25 10:58 11:35 15:05 Hgb Hct Plt Count Sodium 140 Potassium 3.4 Creatinine 0.58 Estimated GFR > 60 Glucose (Clinic) 296 H POC Glucose 227 H Hemoglobin A1c % AST ALT Albumin Laboratory Tests 03/28/25 04/18/25 08:50 11:00 Hgb 12.7 Hct 38.3 Plt Count 323 Sodium 141 Creatinine 0.66 Estimated GFR > 60 Random Glucose 191 H Fasting Glucose 351 H* C-Peptide 2.01 AST 63 H ALT 35 H Triglycerides 354 H 259 H Cholesterol 235 H 211 H LDL Cholesterol, Calc 129 H 129 H HDL Cholesterol 36 L 31 L Vitamin B12 397 TSH 1.34 Urine Creatinine 184.89 Urine Microalbumin 22.0 Microalb/Creat Ratio 11.8 Anti-IA2 Antibody <5.4 HECTOR Antibody <5 PFSH Medical History (Updated 04/19/25 @ 12:53 by Rona Lopez MD) Dyslipidemia associated with type 2 diabetes mellitus Vitamin D deficiency Diabetes mellitus Autistic disorder Surgical History No pertinent past surgical history Family History Father No problems noted. Mother No problems noted. Social History Household Members: Family Housing: House Do you presently have visiting nurse or other home services: No Alcohol intake: never Patient Tobacco Use Status: Never used Tobacco e-Cigarette/Vaping Use: Never Used service: No Current occupational status: unemployed Cognitive needs: No Hearing needs: No Vision needs: Yes Physical Exam Vital Signs: Last Vital Signs Pulse 81 05/17/25 13:07 BP 102/70 05/17/25 13:07 Pulse Ox 97 05/17/25 13:07 Oxygen Delivery Method Room Air 05/17/25 13:07 BMI result Body Mass Index 34.1 Results Reviewed Results Reviewed: Laboratory Last Values Glucose (Clinic) 79 mg/dL (60-115) 05/17/25 13:15 Assessment & Plan Assessment & Plan (1) Diabetes mellitus: Code(s): E11.9 - Type 2 diabetes mellitus without complications Category: Medical Qualifiers: Diabetes mellitus complication status: with hyperglycemia Diabetes mellitus fpc insulin use: with mathematical technician use Diabetes mellitus type: type 2 Qualified Code(s): E11.65 - Type 2 diabetes mellitus with hyperglycemia; Z79.4 - senior mechanical design 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 Diagnosed March 2025. She has a strong family history of type 2 diabetes mellitus. Given her weight, strong family history consistent with type 2 diabetes mellitus, plus detectable C-peptide and negative antibody levels. Blood sugars are now much improved though they are only checking once or twice a day.. Fastings around 80-90. Pre meal blood sugars also in the 80s. Hospitalized for DKA in March 2025 that is her diabetes was diagnosed. At this time we will titrate down her insulin a bit. But most importantly it would be good for her to go on a CGM sensor. She missed her last diabetes education appointment and then recently it was rescheduled. I stressed to them importance of going to this and picking up the sensor. Did hypoglycemia education Discussed importance of control of hyperglycemia and complications of hyperglycemia. Plan: -continue metformin extended release 500 mg b.i.d., Reduce Lantus to 20 units at bedtime, if your blood sugars in the morning fasting are falling to <75 mg/dl , reduce lantus even more to 18 units insulin lispro <100 - 0 units 101 - 150- 2 units 151-200 - 4 units 201-250 -4 units 251-300 - 6 units 301-350 - 6 units >350 - 8 units -advised 30 minutes of exercise 5 days a week -annual eye visits advised -referral placed for chief accountant , pending appointment -referral placed for educator, plan would be to start CGM sensor (2) Dyslipidemia associated with type 2 diabetes mellitus: Code(s): E11.69 - Type 2 diabetes mellitus with other specified complication; E78.5 - Hyperlipidemia, unspecified Category: Medical Plan: LDL at 129 mg/dL from April 2025. Triglycerides and cholesterol levels also elevated. Given her age, plus LDL is less than 160 mg/dL, at this time I am holding off on starting a statin. We will keep an eye on her lipids. At this time advised in 10 is lifestyle modification. She has started walking but not too much. Advised 30 minutes 5 days a week. Advised about avoiding trans saturated in [place] saturated fats, avoiding beef and pork and sticking with lean meats. Plan I spent 30 minutes in reviewing the record, seeing the patient and documenting in the medical record. Patient Instructions: Continue metformin ER 500 mg twice daily Reduce Lantus to 20 units at bedtime, if your blood sugars in the morning fasting are falling to <75 mg/dl , reduce lantus even more to 18 units insulin lispro <100 - 0 units 101 - 150- 2 units 151-200 - 4 units 201-250 -4 units 251-300 - 6 units 301-350 - 6 units >350 - 8 units Rule of 15 Treatment for Hypoglycemia (Low blood sugar) If your blood glucose is low (70 and below)*, follow the steps below to treat: Eat or drink something from the list below equal to 15 grams of carbohydrate (carb). Rest for 15 minutes Re-check your blood glucose. If it is still low, (below 70), repeat step 1 above. ? If your next meal is more than an hour away, you will need to eat one carbohydrate choice as a snack to keep your blood glucose from going low again. ?If you can't figure out why you have low blood glucose, call your healthcare provider, as your medicine may need to be adjusted. ?Always carry something with you to treat an insulin reaction. Use food from the list below. ? Foods equal to One Carbohydrate Choice (15 grams of carbohydrate): 3 Glucose ?tablets or 4 Dextrose tablets 4 ounces of fruit juice 5-6 ounces (about 1/2 can) of regular soda such as Coke or Pepsi ? 7-8 gummy or regular Life Savers ? 1 Tbsp. of sugar or jelly NOTE: If your blood sugar is less than 50, double the portion above for a total of 30 gm. ?Carbohydrate. ? Follow meal plan of 45-60 g of consistent carbohydrates at 3 meals each day and 15 g of carbohydrate at 1-2 snacks each day. Coding Level of Care Code Est Pt Level 4 (99217) Complex EM visit Add On G2211 Diagnoses Type 2 diabetes mellitus with hyperglycemia, with long-term current use of insulin E11.65; Z79.4 Diabetes mellitus complication status: with hyperglycemia Diabetes mellitus fpc insulin use: with fpc use Diabetes mellitus type: type 2 Dyslipidemia associated with type 2 diabetes mellitus E11.69; E78.5 Time Spent (min) 30
[2025-05-17 13:19] LABS: Glucose, Whole Blood 79 mg/dL (60-115)
== END 2025-05-17 13:32 | disposition home or self-care (01) ==
LOC: HO.ENCR 13:02
PROVIDERS: PCP Nurse Practitioner Family; Visit Provider Student in an Organized Health Care Education/Training Program
DX: E11.65 Type 2 diabetes mellitus with hyperglycemia (principal); Z79.4 Long term (current) use of insulin; E11.69 Type 2 diabetes mellitus with other specified complication; E78.5 Hyperlipidemia, unspecified
CPT/HCPCS: 99214

== ENCOUNTER → 2025-05-17 13:01 | Outpatient (BNVA) | payer OTHER, SELFPAY | PROVIDERS: PCP Nurse Practitioner Family; Visit Provider Student in an Organized Health Care Education/Training Program | DX: E11.65 Type 2 diabetes mellitus with hyperglycemia (principal); E11.69 Type 2 diabetes mellitus with other specified complication; E78.5 Hyperlipidemia, unspecified; Z79.4 Long term (current) use of insulin | CPT/HCPCS: 82947; 99212 ==

== ENCOUNTER 2025-07-07 11:05 | Outpatient (REF) | payer OTHER, SELFPAY ==
[2025-07-07 14:27] LABS: Alanine Aminotransferase 41 U/L (0-31); Aspartate Amino Transferase 39 U/L (5-31); Cholesterol 202 mg/dL (<200); Estimated Glomerular Filt Rate > 60; HDL Cholesterol 36 mg/dL (>40); Triglycerides 138 mg/dL (<150)
[2025-07-07 14:47] LABS: Vitamin B12 227 pg/mL (200-900)
== END 2025-07-07 11:06 | disposition home or self-care (01) ==
LOC: HO.LAB 11:05
PROVIDERS: PCP Nurse Practitioner Family; Visit Provider Physician Assistant Medical
DX: E11.65 Type 2 diabetes mellitus with hyperglycemia (principal); E78.5 Hyperlipidemia, unspecified; R79.89 Other specified abnormal findings of blood chemistry; Z91.89 Other specified personal risk factors, not elsewhere classified; E78.2 Mixed hyperlipidemia; Z79.84 Long term (current) use of oral hypoglycemic drugs
CPT/HCPCS: 36415; 80061; 82565; 82607; 82947; 83036; 84450; 84460; 99212

== ENCOUNTER 2025-07-07 11:05 | Outpatient (AMB) | payer OTHER, SELFPAY ==
--- NOTE | 2025-07-07 11:18 | MHC.OFFVIS ---
Vital Signs 07/07/25 11:22 Height 5 ft 6 in Weight 210 lb 1.608 oz BMI 33.9 BP 100/62 Blood Pressure Location Rt brachial Position Sitting Pulse 96 Pulse Source Pulse Oximeter Pulse Oximetry (%) 97 Oxygen Delivery Method Room Air Intake Visit Reasons: DM Intake Note: Patient present today for Type 2 Diabetes Mellitus Last Diabetic eye exam: Last year, might be due for exam. Needs to make appointment. Last Podiatry Visit: Doesn't have one Random Glucose: 93 mg/dl HgA1C: 7.0% 07/07/2025 Crew Manager Required: No Accompanied by: Self / Same As Patient Allergies No Known Allergies Allergy (Verified 07/07/25 11:24) Medication List - Last Reconciled 07/07/25 by AISHA Cruz acetone (urine) test (Ketone Urine Test strips) As directed alcohol swabs 1 pad topical QIDACHS blood sugar diagnostic (FreeStyle Lite Strips) Test four times a day or as directed. blood-glucose meter (FreeStyle Lite Meter kit) As Directed blood-glucose sensor (FreeStyle Tiffanie 3 Plus Sensor device) As directed every 15 days blood-glucose,atlassian administrator,cont (FreeStyle Tiffanie 3 [place]) As directed cholecalciferol (vitamin D3) (Vitamin D3) 50 mcg PO DAILY clonidine HCl 0.2 mg (2 x 0.1 mg) PO DAILY escitalopram oxalate 10 mg PO DAILY insulin glargine (Lantus Solostar U-100 Insulin) 6 units subcut DAILY insulin lispro (Humalog KwikPen (U-100) Insulin) sliding scale <100 - 2 units 101 - 150- 4 units 151-200 - 6 units 201-250 - 8 units 251-300 - 8 units 301-350 - 10 units >350 - 10 units Upto 30 units max in a day L norgest/e.estradiol-e.estrad 0.15 mg-30 mcg (84)/10 mcg (7) (Simpesse) 1 tab PO DAILY lancets (FreeStyle Lancets) Test four times a day or as directed. melatonin 10 mg PO BEDTIME metformin ER (Glucophage XR) orally 2 times a day; take 2 tabs in the morning and 1 tab at night. omeprazole 20 mg PO DAILY pen needle, diabetic Use four times a day or as directed. tirzepatide (Mounjaro) 2.5 mg (0.5 mL) subcut QWEEK HPI Comments Details: 30-year-old female coming in today for follow up of type 2 diabetes mellitus. Here today with mother Krysta and her father Trever. History of diabetes Diagnosed 03/18/25, new onset diabetes mellitus , hemoglobin A1c 10.5% at diagnosis Found to be in DKA Labs from March 2025 showed C-peptide is within normal range, undetectable alis , islet cell, insulin antibody Hemoglobin A1c 7% today. Reviewed CGM Time in range 95% Low 3% High 1% Very low 1% G DC 6.1% Glucose variability sent 26.5% Average glucose 115 CGM active 96% She has a pattern of hypoglycemia overnight and in the morning and mid day. Patient endorses daily lows. They stopped lispro over a month ago due to lows and reduced Lantus from 24-20 units. She is also taking metformin 500 mg twice daily. She would like to try to come off of insulin and wants to start a GLP 1. Stopped drinking soda. She drinks water a lot now. Decreased carbohydrates and sugars in her diet. History of hyperlipidemia. History of LFTs when checked in April shortly after hospitalization. No alcohol use. ROS: Constitutional: No unexplained weight loss, fever, chills, fatigue or night sweats. Eyes: No vision changes Gastrointestinal: No anorexia, nausea, vomiting or diarrhea. No abdominal pain Endocrine: No cold or heat intolerance. No polyuria or polydipsia. Physical exam: Constitutional: Alert, in no distress. Head: Normocephalic. Neck: Supple, Full range of motion. No lymphadenopathy. No palpable thyroid masses. Respiratory: Clear to auscultation. Cardiovascular: S1 S2 regular. No murmurs Psychiatric: Normal mood and affect [facility] Medical History (Updated 07/07/25 @ 12:18 by AISHA Cruz) Hyperlipidemia Elevated LFTs Controlled type 2 diabetes mellitus Dyslipidemia associated with type 2 diabetes mellitus Vitamin D deficiency Diabetes mellitus Autistic disorder Surgical History No pertinent past surgical history Family History Father No problems noted. Mother No problems noted. Social History Household Members: Family Housing: House Do you presently have visiting nurse or other home services: No Alcohol intake: never Patient Tobacco Use Status: Never used Tobacco e-Cigarette/Vaping Use: Never Used service: No Current occupational status: unemployed Cognitive needs: No Hearing needs: No Vision needs: Yes Physical Exam Vital Signs: Last Vital Signs Pulse 96 07/07/25 11:22 BP 100/62 07/07/25 11:22 Pulse Ox 97 07/07/25 11:22 Oxygen Delivery Method Room Air 07/07/25 11:22 BMI result Body Mass Index 33.9 Office Procedures Glucose Monitoring Details Details: See [facility] [address] - Glucose monitoring, continuous-physician I&R Procedure code (CPT) selection complete Results AMB Hemoglobin A1c AMB Hemoglobin A1c 7.0 % Last Edit by CINDY Kothari on 07/07/25 11:43 Results Reviewed Results Reviewed: Laboratory Last Values Glucose (Clinic) 93 mg/dL (60-115) 07/07/25 11:31 Assessment & Plan Assessment & Plan (1) Controlled type 2 diabetes mellitus: Code(s): E11.9 - Type 2 diabetes mellitus without complications Category: Medical Qualifiers: Diabetes mellitus long-term insulin use: with long-term use Diabetes mellitus complication status: without complication Qualified Code(s): E11.9 - Type 2 diabetes mellitus without complications; 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 She has stopped drinking soda and modified her diet. Her GMI is 6.1% today demonstrating excellent control of diabetes. She is eager to get off insulin, and she would like to start a GLP 1 to help with weight loss. She is having hypoglycemia frequently. Reduce Lantus to 6 units nightly and increase metformin to 1000 mg in the morning and 500 mg in the evening. If you have continued low blood sugars stop Lantus. Denies contraindications to GLP 1. Side effects reviewed. When you start Mounjaro 2.5 mg weekly stop Lantus. Call if blood sugars are over 250. Urine ketone strips sent to pharmacy. Written instructions reviewed. Reviewed treatment of hypoglycemia. She will have lab work done today to re-evaluate liver enzymes, lipids and check B12 and metformin. Follow up in 1 month for type 2 diabetes. Orders: Orders Lipid Panel Today AISHA Cruz E11.69 - Type 2 diabetes mellitus with other specified complication, E78.5 - Hyperlipidemia, unspecified, R73.9 - Hyperglycemia, unspecified Alanine Aminotransferase Today AISHA Cruz E11.69 - Type 2 diabetes mellitus with other specified complication, E78.5 - Hyperlipidemia, unspecified, R73.9 - Hyperglycemia, unspecified, R79.89 - Other specified abnormal findings of blood chemistry AMB Glucose Monitoring Today AISHA Cruz E11.9 - Type 2 diabetes mellitus without complications AMB Hemoglobin A1c Today AISHA Cruz E11.69 - Type 2 diabetes mellitus with other specified complication, E78.5 - Hyperlipidemia, unspecified Creatinine Today AISHA Cruz E11.69 - Type 2 diabetes mellitus with other specified complication, E11.9 - Type 2 diabetes mellitus without complications, E78.5 - Hyperlipidemia, unspecified, R73.9 - Hyperglycemia, unspecified Aspartate Amino Transferase Today AISHA Cruz E11.69 - Type 2 diabetes mellitus with other specified complication, E78.5 - Hyperlipidemia, unspecified, R73.9 - Hyperglycemia, unspecified Vitamin B12 Today AISHA Cruz E11.69 - Type 2 diabetes mellitus with other specified complication, E78.5 - Hyperlipidemia, unspecified, R73.9 - Hyperglycemia, unspecified, Z91.89 - Other specified personal risk factors, not elsewhere classified Medications: New acetone (urine) test (Ketone Urine Test strips) As directed 100 ea 0RF AISHA Cruz tirzepatide (Mounjaro) for 4 weeks 2.5 mg (0.5 mL) subcut QWEEK 2 mL 0RF AISHA Cruz Changed From metformin ER (Glucophage XR) 500 mg PO BID 60 tabs 5RF To metformin ER (Glucophage XR) orally 2 times a day; take 2 tabs in the morning and 1 tab at night. 270 tabs 0RF AISHA Cruz From insulin glargine (Lantus Solostar U-100 Insulin) 24 units (0.24 mL) subcut DAILY 15 mL 5RF E11.9 - Type 2 diabetes mellitus without complications To insulin glargine (Lantus Solostar U-100 Insulin) 6 units subcut DAILY E11.9 - Type 2 diabetes mellitus without complications Rona Lopez MD Discontinued potassium chloride ER (Klor-Con M) Discontinued Reason: Doctor's Order 20 mEq PO BID 20 tabs 0RF Patient Instructions: Increase Metformin ER to 1000 mg in the morning and continue 500 mg at night and decrease Lantus to 6 units. When you start Mounjaro 2.5 mg weekly, try stopping Lantus. If insurance does not cover Mounjaro, I will send the covered alternative. Diabetic ketoacidosis (DKA) A serious condition that can lead to diabetic coma (passing out for a long time) or even When your cells don't get the glucose they need for energy, your body begins to burn fat for energy, which produces ketones. Ketones are chemicals that the body creates when it breaks down fat to use for energy. The body does this when it doesn?t have enough insulin to use glucose, the body?s normal source of energy. When ketones build up in the blood, they make it more acidic. They are a warning sign that your diabetes is out of control or that you are getting sick. Symptoms of Diabetic Ketoacidosis (DKA) DKA usually develops slowly. But when vomiting occurs, this life-threatening condition can develop in a few hours. Early symptoms include the following: ? Thirst or a very dry mouth ? Frequent urination ? High blood glucose (blood sugar) levels ? High levels of ketones in the urine Then, other symptoms appear: ? Constantly feeling tired ? Dry or flushed skin ? Nausea, vomiting, or abdominal pain ? (Vomiting can be caused by many illnesses, not just ketoacidosis. If vomiting continues for more than 2 hours, contact your health care provider.) ? Difficulty breathing ? Fruity odor on breath ? A hard time paying attention, or confusion When should you test for ketones? It is advisable to check for ketones under the following conditions when: Your blood glucose is higher than 250mg/dl. Feeling nauseated, throwing up, or have pains in your abdominal region. Have a cold or flu. Have general body fatigue. Feel thirsty or have a very dry mouth. Have flushed skin. Have a fruity breath or a hard time breathing. You feel confused or in fog. Negative, trace or light ketones: hydrate, bring sugars down with insulin You should go to the ER if you have moderate or large ketones. If you experience low blood sugar (under 70), treat this by eating a chewable fruit candy like skittles or jelly beans (about 8 pieces), 4 ounces (1/2 cup) of fruit juice (not diet), 1 tablespoon of honey or 4 glucose tablets. If your blood sugar is under 50, take double the amount of one of the above. Recheck your blood sugar in 15 minutes. Coding Level of Care Code Est Pt Level 4 (57474) Diagnoses Controlled type 2 diabetes mellitus without complication, with long-term current use of insulin E11.9; Z79.4 Diabetes mellitus long-term insulin use: with buttermaker continuous churn use Diabetes mellitus complication status: without complication Elevated LFTs R79.89 Mixed hyperlipidemia E78.2 Hyperlipidemia type: mixed hyperlipidemia CPT Codes Details - CPT: 28178 - Glucose monitoring, continuous-physician I&R ([id number])
[2025-07-07 11:22] VITALS: BP 100/62; PULSE 96; O2SAT 97; BMI 33.9
[2025-07-07 11:36] LABS: Glucose, Whole Blood 93 mg/dL (60-115)
== END 2025-07-07 12:16 | disposition home or self-care (01) ==
LOC: HO.ENCR 11:06
PROVIDERS: PCP Nurse Practitioner Family; Visit Provider Physician Assistant Medical
DX: E11.9 Type 2 diabetes mellitus without complications (principal); Z79.4 Long term (current) use of insulin; R79.89 Other specified abnormal findings of blood chemistry; E78.2 Mixed hyperlipidemia; E11.69 Type 2 diabetes mellitus with other specified complication; E78.5 Hyperlipidemia, unspecified

== ENCOUNTER 2025-08-11 15:22 | Outpatient (AMB) | payer OTHER, SELFPAY ==
[2025-08-11 15:27] VITALS: BP 96/60; PULSE 99; O2SAT 97; BMI 33.4
--- NOTE | 2025-08-11 15:27 | A.OFFVIS_ITS ---
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 Max daily usage: 5 strips alcohol swabs 1 pad topical QIDACHS blood sugar diagnostic (FreeStyle Lite Strips) Test four times a day or as directed. blood-glucose meter (FreeStyle Lite Meter kit) As Directed blood-glucose sensor (FreeStyle Tiffanie 3 Plus Sensor device) As directed every 15 days blood-glucose,chin strap maker,cont (FreeStyle Tiffanie 3 [place]) As directed cholecalciferol (vitamin D3) (Vitamin D3) 50 mcg PO DAILY clonidine HCl 0.2 mg (2 x 0.1 mg) PO DAILY escitalopram oxalate 10 mg PO DAILY L norgest/e.estradiol-e.estrad 0.15 mg-30 mcg (84)/10 mcg (7) (Simpesse) 1 tab PO DAILY lancets (FreeStyle Lancets) Test four times a day or as directed. melatonin 10 mg PO BEDTIME metformin ER (Glucophage XR) 500 mg PO DAILY omeprazole 20 mg PO DAILY pen needle, diabetic Use four times a day or as directed. tirzepatide (Mounjaro) 5 mg (0.5 mL) subcut QWEEK HPI Comments Details: 30-year-old female coming in today for follow up of type 2 diabetes mellitus. Here today with mother, Krysta, and her father, Trever. History of diabetes Diagnosed 03/18/25, new onset diabetes mellitus, hemoglobin A1c 10.5% at diagnosis Found to be in DKA Labs from March 2025 showed C-peptide is within normal range, undetectable alis , islet cell, insulin antibody Hemoglobin A1c 7% 07/07/2025. Reviewed CGM data G [place] 5.6% Target range 97% High 0% Low 3% Current medication: Mounjaro 2.5 mg weekly and metformin 1000 mg in the morning and 500 mg in the evening. She would like to increase Mounjaro to promote weight loss. Past medication: Lispro and Lantus discontinued due to hypoglycemia. Stopped drinking soda. She drinks water a lot now. Decreased carbohydrates and sugars in her diet. History of hyperlipidemia. LFTs are still elevated. No alcohol use. B12 borderline low. ROS: Constitutional: No unexplained weight loss, fever, chills, fatigue or night sweats. Eyes: No vision changes Gastrointestinal: No anorexia, nausea, vomiting or diarrhea. No abdominal pain Endocrine: No cold or heat intolerance. No polyuria or polydipsia. Physical exam: Constitutional: Alert, in no distress. Head: Normocephalic. Neck: Supple, Full range of motion. No lymphadenopathy. No palpable thyroid masses. Respiratory: Clear to auscultation. Cardiovascular: S1 S2 regular. No murmurs Psychiatric: Normal mood and affect [facility] Medical History (Updated 07/07/25 @ 12:18 by AISHA Cruz) Hyperlipidemia Elevated LFTs Controlled type 2 diabetes mellitus Dyslipidemia associated with type 2 diabetes mellitus Vitamin D deficiency Diabetes mellitus Autistic disorder Surgical History No pertinent past surgical history Family History Father No problems noted. Mother No problems noted. Social History Household Members: Family Housing: House Do you presently have visiting nurse or other home services: No Alcohol intake: never Patient Tobacco Use Status: Never used Tobacco e-Cigarette/Vaping Use: Never Used service: No Current occupational status: unemployed Cognitive needs: No Hearing needs: No Vision needs: Yes Physical Exam Vital Signs: Last Vital Signs Pulse 99 08/11/25 15:27 BP 96/60 08/11/25 15:27 Pulse Ox 97 08/11/25 15:27 Oxygen Delivery Method Room Air 08/11/25 15:27 BMI result Body Mass Index 33.4 Office Procedures Glucose Monitoring Details Details: see [facility] [address] - Glucose monitoring, continuous-physician I&R Procedure code (CPT) selection complete Results Reviewed Results Reviewed: Laboratory Last Values Glucose (Clinic) 101 mg/dL (60-115) 08/11/25 15:33 Assessment & Plan Assessment & Plan (1) Controlled type 2 diabetes mellitus: Code(s): E11.9 - Type 2 diabetes mellitus without complications Category: Medical (2) Elevated LFTs: Code(s): R79.89 - Other specified abnormal findings of blood chemistry Category: Medical (3) Hyperlipidemia: Code(s): E78.5 - Hyperlipidemia, unspecified Category: Medical Qualifiers: Hyperlipidemia type: mixed hyperlipidemia Qualified Code(s): E78.2 - Mixed hyperlipidemia Plan In summary this is a 30-year-old female who was diagnosed with type 2 diabetes in March of 2025 following admission for DKA. She has stopped drinking soda and modified her diet. Decrease metformin to 500 mg daily. Increase Mounjaro to 5 mg weekly. If you have continued low blood sugars stop metformin. Reviewed treatment of hypoglycemia. Check liver u/s. Start b12 supplement. Recommended continued weight loss, exericse and dietary changes for HLD. Monitor for now given recent improvements. Follow up in 1 month for type 2 diabetes. Orders: Orders AMB Glucose Monitoring Today E11.9 - Type 2 diabetes mellitus without complications US abdomen graff w elastography Today R79.89 - Other specified abnormal findings of blood chemistry Medications: New tirzepatide (Mounjaro) 5 mg (0.5 mL) subcut QWEEK 2 mL 0RF cyanocobalamin (vitamin B-12) 250 mcg (1/2 x 500 mcg) PO DAILY 90 tabs 1RF cyanocobalamin (vitamin B-12) Replaces Rx for 250 mcg daily. 500 mcg PO DAILY 90 tabs 1RF Changed From metformin ER (Glucophage XR) orally 2 times a day; take 2 tabs in the morning and 1 tab at night. 270 tabs 0RF To metformin ER (Glucophage XR) 500 mg PO DAILY Discontinued insulin lispro (Humalog KwikPen (U-100) Insulin) Discontinued Reason: Doctor's Order sliding scale <100 - 2 units 101 - 150- 4 units 151-200 - 6 units 201-250 - 8 units 251-300 - 8 units 301- 350 - 10 units >350 - 10 units Upto 30 units max in a day 15 mL 5RF tirzepatide (Mounjaro) for 4 weeks Discontinued Reason: Doctor's Order 2.5 mg (0.5 mL) subcut QWEEK 2 mL 0RF Patient Instructions: Decrease Metformin to 1 tablet daily Increase Mounjaro to 5 mg weekly. If you have have continued low blood sugars after this stop Metformin Start b12 500 mcg once daily Coding Level of Care Code Est Pt Level 4 (52628) Diagnoses Controlled type 2 diabetes mellitus E11.9 Elevated LFTs R79.89 Mixed hyperlipidemia E78.2 Hyperlipidemia type: mixed hyperlipidemia CPT Codes Details - CPT: 61016 - Glucose monitoring, continuous-physician I&R ([id number])
[2025-08-11 15:38] LABS: Glucose, Whole Blood 101 mg/dL (60-115)
== END 2025-08-11 16:06 | disposition home or self-care (01) ==
LOC: HO.ENCR 15:23
PROVIDERS: PCP Nurse Practitioner Family; Visit Provider Physician Assistant Medical
DX: E11.9 Type 2 diabetes mellitus without complications (principal); R79.89 Other specified abnormal findings of blood chemistry; E78.2 Mixed hyperlipidemia

== ENCOUNTER → 2025-08-11 15:22 | Outpatient (BNVA) | payer OTHER, SELFPAY | PROVIDERS: PCP Nurse Practitioner Family; Visit Provider Physician Assistant Medical | DX: E11.9 Type 2 diabetes mellitus without complications (principal); R79.89 Other specified abnormal findings of blood chemistry; E78.2 Mixed hyperlipidemia; Z79.84 Long term (current) use of oral hypoglycemic drugs; Z79.85 Long-term (current) use of injectable non-insulin antidiabetic drugs; Z71.3 Dietary counseling and surveillance; Z71.82 Exercise counseling; Z68.33 Body mass index [BMI] 33.0-33.9, adult | CPT/HCPCS: 82947; 99212 ==